=== PATIENT | female | born 1935 | race Caucasian/White ===

== ENCOUNTER → 2023-11-13 08:06 | Outpatient (REF) | payer MEDICARE, OTHER, SELFPAY | LOC: RST 08:06 | PROVIDERS: ATTENDING PHYSICIAN Nurse Practitioner Adult Health | DX: R13.13 Dysphagia, pharyngeal phase (principal) | CPT/HCPCS: 74230; 92611 ==

== ENCOUNTER → 2024-05-13 09:20 | Outpatient (REF) | payer MEDICARE, OTHER, SELFPAY | LOC: HWRCS 09:20 | PROVIDERS: ATTENDING PHYSICIAN Internal Medicine Cardiovascular Disease; FAMILY PHYSICIAN Internal Medicine | DX: Q21.0 Ventricular septal defect (principal); I35.1 Nonrheumatic aortic (valve) insufficiency | CPT/HCPCS: 93306 ==

== ENCOUNTER 2024-10-08 20:55 | Inpatient (IN) | payer MEDICARE, OTHER, SELFPAY ==
[2024-10-08 17:16] LABS: INR 1.19; Lactic Acid 1.7 mmol/L (0.7-2.0); PT 15.4 Sec (11.4-14.6)
[2024-10-08 17:34] LABS: % Basophils 0.4 % (0-2); % Eosinophils 0.1 % (0-6); % Immature Granulocytes 0.4 % (0-0.5); % Lymphocytes 2.6 % (20.5-51.1); % Monocytes 2.6 % (1.7-9.3); % Neutrophils 93.9 % (42.2-75.2); Absolute Basophils 0.1 10^3/uL (0-0.2); Absolute Immature Granulocytes 0.1 10^3/uL (0-0.05); Absolute Lymphocytes 0.4 10^3/uL (1.2-3.4); Absolute Monocytes 0.4 10^3/uL (0.1-0.6); Hematocrit 36.4 % (37.0-47.0); Hemoglobin 12.2 g/dL (12.0-16.0); Mean Corp Hgb Conc. 33.5 g/dL (33.0-37.0); Mean Corpuscular Hgb 30.7 pg (27.0-31.0); Mean Corpuscular Volume 91.7 fL (81.0-99.0); Mean Platelet Volume 9.2 fL (7.4-10.4); Nucleated Red Blood Cells % 0 %; Platelet Count 352 10^3/uL (130-400); Red Blood Cell Count 3.97 10^6/uL (4.20-5.40)
[2024-10-08 17:44] LABS: TSH Reflex To Free T4 1.97 uIU/ml (0.47-4.68)
[2024-10-08] MEDS: NSS 500 IV (17:58)
[2024-10-08 18:00] VITALS: BP 130/61
--- NOTE | 2024-10-08 18:22 | ED.GENMED ---
History of Present Illness
<Polly Peña PA-C - Last Filed: 10/08/24 22:22>
General
Chief Complaint: Pneumonia Symptoms
Source: patient and family (Daughters at bedside)
Exam Limitations: none
Time Seen by Provider: 10/08/24 17:42
Nursing documentation reviewed up to this point in time: agreed with
History of Present Illness
History of Present Illness:
Patient is an 88-year-old female with history of bronchiectasis, dysphagia presenting to the emergency department with shortness of breath and low pulse ox. Patient states she was seen by her ENT at [facility] on Friday where she received a few Botox
injections. They stated that she may have difficulty swallowing over the following few days. Patient states that beginning on Friday she has noticed worsening shortness of breath, low appetite, significant fatigue, and cough.
Patient denies any chest pain. No known fever. No hemoptysis.
Patient was found to be 84% on room air. Her family states that she has not been eating/drinking much over the past week. They are concerned that she may have aspirated.
Past History
<Polly Peña PA-C - Last Filed: 10/08/24 22:22>
Past History
ED Past Medical History: None
ED Past Surgical History: None
Social History
Tobacco: Non-smoker
Alcohol: None
Drug: None
Review of Systems
<Polly Peña PA-C - Last Filed: 10/08/24 22:22>
Review of Systems
Allergies reviewed?: Yes
All Other Systems: ROS reviewed and negative except as documented in HPI and ROS
Phy Exam
<Polly Peña PA-C - Last Filed: 10/08/24 22:22>
Physical Exam
Physical Exam:
Vitals: Hypoxic, tachypneic. Afebrile
General: Patient is frail.
Skin: Warm and dry, no rashes or lesions
Head: Normocephalic, atraumatic
Eyes: Sclera nonicteric. EOMs intact. No nystagmus.
Throat: Protecting airway
Neck: Normal ROM, no cervical spine tenderness, no meningismus. Trachea midline
Cardiac: Tachycardic, normal rhythm, no murmurs.
Pulm: Hypoxic, 84% on room air. Tachypneic. Bilateral rales. No wheeze
Abdomen: Abdomen soft and nontender.
Extremities: No evidence of cyanosis or edema. Palpable DP pulse bilateral
Neuro: AAOx3. Grossly intact.
Psychiatric: Normal affect.
Course
<Polly Peña PA-C - Last Filed: 10/08/24 22:22>
Orders/Labs/Results
Orders:
Orders
10/08/24 Breakfast
NPO
Allow oral meds: Yes
Allow clear liquids: Sips of Clears
10/08/24 16:37
Electrocardiogram (*1) Urgent
Reason for Study: Other
Other Reason for Exam: Possible Sepsis
EKG- Treatment ONCE
IV Insert/Care/Rem.- Treatment PRN
CR Chest - 2 Views Urgent
Comment:
Reason For Exam: suspected infection
10/08/24 16:49
Complete Blood Count/With Diff Urgent
Comprehensive Metabolic Panel Urgent
Lactic Acid Q4H
Comment: ON ICE, CANCEL 2ND ORDER IF FIRST LACTIC ACID LEVEL <2
Prothrombin Time Urgent
TSH Reflex To Free T4 Urgent
Blood Culture Q20M
NEIL Source: Blood/Venous
Specimen Description:
Comment: Urgent from separate sites. If patient screens positive for possible sepsis
10/08/24 17:53
0.9% Sodium Chloride 500 ml [Nss] 500 ml IV BOLUS
10/08/24 18:05
Blood Culture Q20M
NEIL Source: Blood/Venous
Specimen Description:
Comment: Urgent from separate sites. If patient screens positive for possible sepsis
Influenza A+B Rapid Molecular Urgent
NEIL Source: Nasal Swab
Specimen Description:
10/08/24 18:06
COVID-19 Antigen Urgent
Source: Nasal Swab
10/08/24 19:42
Piperacillin/Tazo 3.375 Gram [Zosyn] 3.375 gram in 50 ml IV NOW
10/08/24 19:46
Vancomycin 1 Gram/200 ml [Vancocin] 1 gram in 200 ml IV NOW
10/08/24 20:44
Admit/Transfer Patient As Directed
Co-Sign Provider:
Level of Care: Inpatient admission
Assign to:: IMU- Intermediate Care
Physician / Group: Robbin
Diagnosis: Acute Hypoxemic Resp Failure, Aspiration
Reason for Hospitalization: Acute Hypoxemic Resp Failure, Aspiration
Expected length of stay greater than two midnights?: Yes
ELOS- Estimated Length of Stay in days: 3
I certify the patient meets the requirements for IP care: Yes
PRN Pain Medication Management As Directed
May give lesser potent ordered pain med per pt: Yes
preference::
Protocol:: Medication orders for pain may be administered in a
manner that supports deferring to patient preference
when the pt is:
- Requesting an ordered lesser potent pain medication.
Least to most potent pain medications are defined
as: acetaminophen < NSAID < tramadol < opioids
(morphine, oxycodone, hydromorphone).
- Requesting a lesser dose of the same medication IF
ORDERED.
- Requesting a less intrusive route of administration
if both routes are prescribed by the provider (PO <
IV).
10/08/24 20:45
Code Status As Directed
Resuscitation Status: Do not resuscitate
Reached after discussion with pt or family/Healthcare POA: Yes
10/08/24 20:46
DNR Bracelet Application ONCE
10/08/24 22:02
Acetaminophen [Tylenol] 650 mg PO Q4HPRN PRN
Albuterol Nebs [Ventolin Nebules] 2.5 mg INH R Q4HPRN PRN
10/08/24 22:02
CLAUDIA Prep Routine
NEIL Source: Oropharyngeal
Specimen Description:
Activity As Directed
Activity Level: Ambulate
With Assistance
I/O [Intake/ Output] As Directed
Frequency: Per unit guidelines
Pneumatic Compression Sleeves As Directed
Type: Knee high
Precautions As Directed
Type of Precautions: Aspiration
Vital Signs As Directed
Frequency: Per unit guidelines
Weight As Directed
Frequency: Daily
Chest PT [Rx Chest Pt] [RESP] Routine
Special Instructions: BID
Incentive Spirometry [Rx Incentive Spirometry] [RESP] Routine
Frequency: q1h while awake
Oxygen Therapy [O2 Therapy] [RESP] Routine
Titrate/Wean O2 to maintain O2 sat greater than (%): 94
Speech Therapy Eval & Treat Routine
DX Deep Vein Thrombosis Video Routine
10/09/24 02:00
Ampicillin/Sulbactam 3 G [Unasyn] 3 gm 0.9% Sodium Chloride 100 ml [Nss] 100 ml IV Q6H
10/09/24 06:00
Basic Metabolic Panel IN AM
Complete Blood Count/No Diff IN AM
10/09/24 08:00
Albuterol Nebs [Ventolin Nebules] 2.5 mg INH R QID
Hydroxychloroquine [Plaquenil] 400 mg PO DAILY
Pantoprazole [Protonix IV] 40 mg IV DAILY
Sertraline HCl [Zoloft] 75 mg PO DAILY
Abnormal Lab Results
10/08/24
16:49
WBC 16.0 H 10^3/uL
(4.8-10.8)
RBC 3.97 L 10^6/uL
(4.20-5.40)
Hct 36.4 L %
(37.0-47.0)
Abs Immat Gran (auto) 0.1 H 10^3/uL
(0-0.05)
Absolute Neuts (auto) 15.0 H 10^3/uL
(1.4-6.5)
Absolute Lymphs (auto) 0.4 L 10^3/uL
(1.2-3.4)
Neutrophils % 93.9 H %
(42.2-75.2)
Lymphocytes % 2.6 L %
(20.5-51.1)
PT 15.4 H Sec
(11.4-14.6)
BUN 28 H mg/dl
(7-17)
Glucose 179 H mg/dl
(70-99)
Calcium 10.8 H mg/dl
(8.4-10.2)
AST 133 H U/L
(14-36)
ALT 46 H U/L
(0-35)
10/08/24 16:49
10/08/24 16:49
Vital Signs
Initial and Last Documented VS:
Initial Vital Signs
Pulse Ox
87
10/08/24 16:26
Last Documented Vital Signs
Temp Pulse Resp BP Pulse Ox
98.5 F 85 33 100/58 94
10/08/24 21:17 10/08/24 22:00 10/08/24 22:00 10/08/24 22:00 10/08/24 21:45
<Lalo Hall MD - Last Filed: 10/08/24 20:42>
Orders/Labs/Results
Orders:
Orders
10/08/24 Breakfast
NPO
Allow oral meds: Yes
Allow clear liquids: Sips of Clears
10/08/24 16:37
Electrocardiogram (*1) Urgent
Reason for Study: Other
Other Reason for Exam: Possible Sepsis
EKG- Treatment ONCE
IV Insert/Care/Rem.- Treatment PRN
CR Chest - 2 Views Urgent
Comment:
Reason For Exam: suspected infection
10/08/24 16:49
Complete Blood Count/With Diff Urgent
Comprehensive Metabolic Panel Urgent
Lactic Acid Q4H
Comment: ON ICE, CANCEL 2ND ORDER IF FIRST LACTIC ACID LEVEL <2
Prothrombin Time Urgent
TSH Reflex To Free T4 Urgent
Blood Culture Q20M
NEIL Source: Blood/Venous
Specimen Description:
Comment: Urgent from separate sites. If patient screens positive for possible sepsis
10/08/24 17:53
0.9% Sodium Chloride 500 ml [Nss] 500 ml IV BOLUS
10/08/24 18:05
Blood Culture Q20M
NEIL Source: Blood/Venous
Specimen Description:
Comment: Urgent from separate sites. If patient screens positive for possible sepsis
Influenza A+B Rapid Molecular Urgent
NEIL Source: Nasal Swab
Specimen Description:
10/08/24 18:06
COVID-19 Antigen Urgent
Source: Nasal Swab
10/08/24 19:42
Piperacillin/Tazo 3.375 Gram [Zosyn] 3.375 gram in 50 ml IV NOW
10/08/24 19:46
Vancomycin 1 Gram/200 ml [Vancocin] 1 gram in 200 ml IV NOW
10/08/24 20:44
Admit/Transfer Patient As Directed
Co-Sign Provider:
Level of Care: Inpatient admission
Assign to:: IMU- Intermediate Care
Physician / Group: Robbin
Diagnosis: Acute Hypoxemic Resp Failure, Aspiration
Reason for Hospitalization: Acute Hypoxemic Resp Failure, Aspiration
Expected length of stay greater than two midnights?: Yes
ELOS- Estimated Length of Stay in days: 3
I certify the patient meets the requirements for IP care: Yes
PRN Pain Medication Management As Directed
May give lesser potent ordered pain med per pt: Yes
preference::
Protocol:: Medication orders for pain may be administered in a
manner that supports deferring to patient preference
when the pt is:
- Requesting an ordered lesser potent pain medication.
Least to most potent pain medications are defined
as: acetaminophen < NSAID < tramadol < opioids
(morphine, oxycodone, hydromorphone).
- Requesting a lesser dose of the same medication IF
ORDERED.
- Requesting a less intrusive route of administration
if both routes are prescribed by the provider (PO <
IV).
10/08/24 20:45
Code Status As Directed
Resuscitation Status: Do not resuscitate
Reached after discussion with pt or family/Healthcare POA: Yes
10/08/24 20:46
DNR Bracelet Application ONCE
10/08/24 22:02
Acetaminophen [Tylenol] 650 mg PO Q4HPRN PRN
Albuterol Nebs [Ventolin Nebules] 2.5 mg INH R Q4HPRN PRN
10/08/24 22:02
CLAUDIA Prep Routine
NEIL Source: Oropharyngeal
Specimen Description:
Activity As Directed
Activity Level: Ambulate
With Assistance
I/O [Intake/ Output] As Directed
Frequency: Per unit guidelines
Pneumatic Compression Sleeves As Directed
Type: Knee high
Precautions As Directed
Type of Precautions: Aspiration
Vital Signs As Directed
Frequency: Per unit guidelines
Weight As Directed
Frequency: Daily
Chest PT [Rx Chest Pt] [RESP] Routine
Special Instructions: BID
Incentive Spirometry [Rx Incentive Spirometry] [RESP] Routine
Frequency: q1h while awake
Oxygen Therapy [O2 Therapy] [RESP] Routine
Titrate/Wean O2 to maintain O2 sat greater than (%): 94
Speech Therapy Eval & Treat Routine
DX Deep Vein Thrombosis Video Routine
10/09/24 02:00
Ampicillin/Sulbactam 3 G [Unasyn] 3 gm 0.9% Sodium Chloride 100 ml [Nss] 100 ml IV Q6H
10/09/24 06:00
Basic Metabolic Panel IN AM
Complete Blood Count/No Diff IN AM
10/09/24 08:00
Albuterol Nebs [Ventolin Nebules] 2.5 mg INH R QID
Hydroxychloroquine [Plaquenil] 400 mg PO DAILY
Pantoprazole [Protonix IV] 40 mg IV DAILY
Sertraline HCl [Zoloft] 75 mg PO DAILY
Abnormal Lab Results
10/08/24
16:49
WBC 16.0 H 10^3/uL
(4.8-10.8)
RBC 3.97 L 10^6/uL
(4.20-5.40)
Hct 36.4 L %
(37.0-47.0)
Abs Immat Gran (auto) 0.1 H 10^3/uL
(0-0.05)
Absolute Neuts (auto) 15.0 H 10^3/uL
(1.4-6.5)
Absolute Lymphs (auto) 0.4 L 10^3/uL
(1.2-3.4)
Neutrophils % 93.9 H %
(42.2-75.2)
Lymphocytes % 2.6 L %
(20.5-51.1)
PT 15.4 H Sec
(11.4-14.6)
BUN 28 H mg/dl
(7-17)
Glucose 179 H mg/dl
(70-99)
Calcium 10.8 H mg/dl
(8.4-10.2)
AST 133 H U/L
(14-36)
ALT 46 H U/L
(0-35)
10/08/24 16:49
10/08/24 16:49
Vital Signs
Initial and Last Documented VS:
Initial Vital Signs
Pulse Ox
87
10/08/24 16:26
Last Documented Vital Signs
Temp Pulse Resp BP Pulse Ox
98.5 F 85 33 100/58 94
10/08/24 21:17 10/08/24 22:00 10/08/24 22:00 10/08/24 22:00 10/08/24 21:45
<Polly Peña PA-C - Last Filed: 10/08/24 22:22>
MDM/Problems Addressed
Differential Diagnosis Includes:
Not limited to: Viral illness, bronchitis, aspiration pneumonia, viral/bacterial pneumonia, pleural effusion, etc.
MDM/Problems Addressed:
88-year-old female with history as documented presenting with 3 days of progressively worsening shortness of breath associated with cough and fatigue. No known fever, no hemoptysis or exertional chest pain. Patient does have history of dysphagia
with recent Botox injections this past Friday. Family concern for possible aspiration event. Patient mildly tachycardic on arrival, and hypoxic to 84% on room air. She is afebrile. Physical exam as above. Patient appears in no distress, mildly
tachypneic with O2 sats 93 on 2 L. Rales bilaterally with normal heart sounds. No lower extremity edema. Labs were initiated in triage significant for leukocytosis of 16 with left shift. Chemistry is pending. Lactic acid normal. Given hypoxia
in setting of cough and leukocytosis�concern for infectious process such as pneumonia, specifically aspiration pneumonia with dysphagia issues. Chest x-ray reviewed by me which does show left lower lobe opacity with possible right perihilar opacity.
Will give 500 mL normal saline. Patient will require admission given hypoxia requiring supplemental O2 and concern for pneumonia on x-ray.
Ultimately�suspect acute hypoxic respiratory failure secondary to pneumonia. Viral swabs negative. Blood cultures sent. Chemistry without acute abnormalities. Given concern for possible aspiration event�will start IV vancomycin/Zosyn in ED.
Patient will be admitted to hospitalist for continued management. Accepted to hospitalist service in stable condition.
Chronic conditions affecting care:
Dysphagia
Acute Exacerbation and/or Progression of Chronic Illness:
N/A
<Polly Peña PA-C - Last Filed: 10/08/24 22:22>
*Radiology
Radiology exam reviewed: preliminary read by ED provider (Chest x-ray reviewed by il-left lower lobe pneumonia)
*Pulse Oximetry
Patient hypoxic: no
*EKG
Interpreted by ED Provider?: Yes
EKG Intrepretation Date: 10/08/24
Interpretation: abnormal
Comparison EKG: changes noted
Heart Rate: 102
Rate: tachycardiac
Rhythm: sinus
[place]: left axis deviation
Interval: normal QT interval
QRS Pattern: normal QRS
Ischemia: no ischemia
*Lotus Notes Administrator Interpretation
Rate: tachycardiac
Interpretation: abnormal
Heart Rate: 102
Rhythm: sinus
*Critical Care Note
Total Time (30-74mins, 75-104mins- exclusive of procedures): Not Applicable
<Polly Peña PA-C - Last Filed: 10/08/24 22:22>
Patient Management
Discussion with other providers: Hospitalist
Escalation/DeEscalation of care consider admission/obs:
Admit for IV antibiotics, supplemental O2
ED Attending Note
<Polly Peña PA-C - Last Filed: 10/08/24 22:22>
-
Portions of this chart may have been created with voice recognition software.� Occasional wrong word or��sound alike� substitutions may have occurred due to the inherent limitations of voice recognition software.
<Lalo Hall MD - Last Filed: 10/08/24 20:42>
ED Attending Note
Patient seen and examined by attending physician: Yes
ED Attending Note:
I have seen and evaluated the patient with a [id number] encounter. I have spoken to the advance practicer provider and involved in the medical history, the physical exam, medical decision making.
Evaluation and management service: agree unless noted differently below.
Results interpretation: agree unless noted differently below.
Focused HPI: 88-year-old female presents with cough and shortness of breath. Ongoing for the past 2 days; has had issues with aspiration had recent Botox injection to help with this and has had increased cough and shortness of breath since. No
fever. No chest pain. No swelling or pain in the legs.
Physical exam: Tachycardia, tachypnea, hypoxia requiring 2 L nasal cannula. Scattered crackles bilaterally. No edema in the legs.
Medical Decision Makin-year-old female presents with cough and shortness of breath in the setting of recent dysphagia/aspiration issues. She has a leukocytosis to 16; COVID and flu negative. Chest x-ray concerning for pneumonia. Cover with
antibiotics. Culture sent off. Admit.
Discharge Plan
Departure
Patient Disposition: Admit
Date of Disposition: 10/08/24
Time of Disposition: 20:09
Presentation/result/management discussed w/ accepting MD/DO: Hospitalist
Discharge Problem:
Left lower lobe pneumonia, Acute hypoxemic respiratory failure
Interventions
Interventions:
*Risk Screen - Suicide Last Done: 10/08/24 16:36
*General Assessment Last Done: 10/08/24 16:36
*Neglect/Abuse Screening Last Done: 10/08/24 16:36
*ED- Fall Risk Assessment Last Done: 10/08/24 22:13
*ED COVID-19 Vaccine History Last Done: 10/08/24 16:36
*Nursing Disposition Last Done: 10/08/24 22:13
ED- Cardiac Assessment Last Done: 10/08/24 18:15
ED- Pulmonary Assessment Last Done: 10/08/24 18:15
Discharge Date and Time
Discharge Date/Time: 10/08/24 22:14
[2024-10-08 18:29] LABS: COVID-19 Antigen Negative (Negative)
[2024-10-08 19:02] VITALS: BP 134/82
[2024-10-08 19:48] VITALS: BMI 20.2
[2024-10-08 19:57] LABS: ALT (SGPT) 46 U/L (0-35); AST (SGOT) 133 U/L (14-36); Albumin 4.4 g/dl (3.5-5.0); Alkaline Phosphatase 94 U/L (38-126); Blood Urea Nitrogen 28 mg/dl (7-17); Calcium 10.8 mg/dl (8.4-10.2); Carbon Dioxide 22 mmol/L (22-30); Chloride 101 mmol/L (98-107); Estimated Creatinine Clearance 34 ml/min; Glucose 179 mg/dl (70-99); Potassium 4.2 mmol/L (3.5-5.1); Sodium 137 mmol/L (135-145); Total Bilirubin 1.3 mg/dl (0.2-1.3); Total Protein 7.2 g/dl (6.3-8.2); eGFR > 60.00
[2024-10-08] MEDS: ZOSYN 50 IV (19:59)
[2024-10-08 20:00] VITALS: BP 116/46
--- NOTE | 2024-10-08 20:59 | HPS.HSE ---
Family Physician
-
Family Physician: hSon Phan
Chief Complaint
-
SOB
History of Present Illness
Patient is an 88y F with PMH significant for chronic dysphagia and bronchiectasis who presents to ED complaining of increased SOB. History obtained from patient and her family at he bedside. Patient has long history of established dysphagia.
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 She has been followed by ENT (Dr. Painter) and Pulmonary (Dr. Reeder). Patient was recently seen by ENT (Dr. Willow Sanchez) and underwent Botox injection on Friday of this week. Patient
states that she has had increased difficulty swallowing and increased SOB since that time. Patient reports intermittent chills but denies any measured fever.
She has poor appetite / poor oral intake but denies any N/V/D, etc.
Patient's daughter went to visit her today and noted that she appeared to be very SOB.
They were seen by the local physician and she was noted to be hypoxemic in the 80s on room air.
Patient presented to the ED for further evaluation.
Here in the ED, patient states that she feels somewhat improved after supplemental oxygen.
Patient had a very active day yesterday with no apparent issues - including dental visit with cavity filling / etc.
Medical History
Past Medical History
Past Medical History: Reports Other
Additional Past Medical History:
Chronic Dysphagia
Zencker's Diverticulum
Rheumatoid Arthritis
Bronchiectasis
Subarachnoid Cyst
Past Surgical History: Reports Other
Additional Past Surgical History:
Bilateral JENNA
Right Temporal Craniotomy
Zencker's Diverticulum Repair
Social History
Tobacco: Non-smoker
Alcohol: Occasional (Very rare.)
Family History
Family History: Not pertinent
Allergies / Home Medications
Allergies reflects when Allergies were last updated in [email or web address].
Home Medications with original date entered in [email or web address]
Allergy/Medication List:
Allergies
Allergy/AdvReac Type Severity Reaction Status Date / Time
No Known Allergies Allergy Verified 10/08/24 16:34
Home Medications
cholecalciferol (vitamin D3) 25 mcg (1,000 unit) capsule 1,000 unit PO DAILY 01/05/14
ascorbic acid (vitamin C) 500 mg tablet (Vitamin C) 500 mg PO DAILY 10/08/24
budesonide 0.5 mg/2 mL suspension for nebulization 0.5 mg inhalation R BID 10/08/24
calcium carbonate 500 mg PO DAILY 10/08/24
denosumab 60 mg/mL subcutaneous syringe (Prolia) 60 mg SC [id number] 10/08/24
hydroxychloroquine 200 mg tablet 400 mg PO DAILY 10/08/24
ipratropium bromide 0.02 % solution for inhalation 2.5 ml inhalation R BID 10/08/24
naproxen sodium 220 mg tablet (Aleve) 220 mg PO BIDPRN PRN mild pain 10/08/24
pantoprazole 40 mg tablet,delayed release 40 mg PO DAILY 10/08/24
sertraline 50 mg tablet 75 mg PO DAILY 10/08/24
therapeutic multivitamin 1 tab PO DAILY 10/08/24
Review of Systems
-
History Source: Patient and Family
A 12 point ROS was completed and negative except as noted: Yes
Constitutional: Reports Fatigue and Chills; Denies Fever
EENT: Reports Other (Dry mouth); Denies Sore Throat or Mouth Pain
Respiratory: Reports Cough and Trouble Breathing; Denies Hemoptysis
Cardiac: Denies Chest Pain or Palpitations
Abdomen/GI: Reports Anorexia; Denies Abdominal Pain, Nausea, Vomiting or Diarrhea
: Denies Dysuria, Frequency or Flank Pain
Musculoskeletal: Denies Joint Pain or Edema
Neurological: Denies Dizzy or Headache
Physical Exam
Vital Signs
Vital Signs
Temp Pulse Resp BP Pulse Ox
98.3 F 94 24 116/46 93
10/08/24 16:32 10/08/24 20:30 10/08/24 20:30 10/08/24 20:00 10/08/24 20:30
Physical Exam
General: Other (88y F in no acute distress.)
HEENT: Other (Very dry MM. Whitish coat on tongue and few spots on posterior oropharynx.)
Respiratory: Other (Scattered coarse breath sounds. No wheezing.)
Cardiac: S1/S2 and Regular Rhythm; No Murmur
GI: Soft, Non Tender, Non Distended and Normal Bowel Sounds
Musculoskeletal: No Clubbing, No Cyanosis and No Edema
Neuro: AO x 3
Laboratory Results
-
10/08/24 16:49
10/08/24 16:49
Laboratory Results
PT 15.4 Sec (11.4-14.6) H 10/08/24 16:49
INR 1.19 10/08/24 16:49
Lactic Acid Cancelled 10/08/24 20:45
Total Bilirubin 1.3 mg/dl (0.2-1.3) 10/08/24 16:49
AST 133 U/L (14-36) H 10/08/24 16:49
ALT 46 U/L (0-35) H 10/08/24 16:49
Alkaline Phosphatase 94 U/L (38-126) 10/08/24 16:49
Impression/Plan
-
A/P: Patient is an 88y F with PMH significant for chronic dysphagia / aspiration who presents to ED complaining of increased SOB.
Acute Hypoxemic Respiratory Failure
Chronic Dysphagia with Acute / Chronic Aspiration Pneumonitis
Chronic Bronchiectasis
- Admit for further evaluation and treatment.
- Continue supplemental O2, nebs, supportive care.
- Aspiration precautions, Speech eval.
- Pulmonary evaluation for additional recommendations.
- IV Unasyn for now given risk for aspiration pneumonia.
- Follow temperature curve. Follow for any new / worsening symptoms.
Suspected Oral Thrush
- Nystatin for now.
- Hold on steroid nebs for now.
- Follow for improvement in exam / swallowing / etc.
Rheumatoid Arthritis
- Stable. Continue Plaquenil.
DVT Prophylaxis: SCDs
Code Status: DNR
[2024-10-08 21:00] VITALS: BP 101/61
[2024-10-08] MEDS: VANCOCIN 200 IV (21:07)
[2024-10-08 22:00] VITALS: BP 100/58
[2024-10-08 22:13] VITALS: BMI 19.9
[2024-10-08] MEDS: MYCOSTATIN ORAL SUSPENSION 5 ML PO (22:40)
[2024-10-08 22:44] VITALS: BP 118/62
--- NOTE | 2024-10-08 23:09 | PTCARENOTE ---
pt admitted from ED, pt is AAOx3, [employer] [place], able to make needs known. VSS. pt on 2L 95%, tachypneic, and SOB on exertion. lungs course throughout. pt is NPO at this time, pt aware and verbalized understanding. able to use BSC x1 assist without issues.
urine khari. thrush noted on tongue, nystatin swabbed onto tongue since pt NPO. pt oriented to new room, call diaz within reach, care ongoing.
[2024-10-09] VITALS (10 sets, daily range): BP systolic 92–124; BP diastolic 53–70; BMI 19.9
--- NOTE | 2024-10-09 00:29 | PTCARENOTE ---
family had asked this RN about IV fluids being ordered. notified [employer]KER- no new orders at this time.
[2024-10-09] MEDS: UNASYN IV ×4 (01:34→20:10)
[2024-10-09 05:21] LABS: Hematocrit 29.8 % (37.0-47.0); Hemoglobin 10.2 g/dL (12.0-16.0); Mean Corp Hgb Conc. 34.2 g/dL (33.0-37.0); Mean Corpuscular Hgb 31.2 pg (27.0-31.0); Mean Corpuscular Volume 91.1 fL (81.0-99.0); Mean Platelet Volume 9.5 fL (7.4-10.4); Platelet Count 278 10^3/uL (130-400); Red Blood Cell Count 3.27 10^6/uL (4.20-5.40); Red Cell Dist. Width 13.2 % (11.5-14.5); White Blood Cell Count 10.2 10^3/uL (4.8-10.8)
[2024-10-09 05:39] LABS: Blood Urea Nitrogen 24 mg/dl (7-17); Calcium 9.7 mg/dl (8.4-10.2); Carbon Dioxide 26 mmol/L (22-30); Chloride 106 mmol/L (98-107); Estimated Creatinine Clearance 38 ml/min; Glucose 91 mg/dl (70-99); Potassium 3.5 mmol/L (3.5-5.1); Sodium 139 mmol/L (135-145); eGFR > 60.00
[2024-10-09] MEDS: VENTOLIN NEBULES 2.5 MG INH ×4 (07:18→18:28)
[2024-10-09] MEDS: NSS (PRESERVATIVE FREE) 10 ML IV (08:37)
[2024-10-09] MEDS: PROTONIX IV 40 MG IV (08:37)
[2024-10-09] MEDS: MYCOSTATIN ORAL SUSPENSION 5 ML PO ×4 (08:39→21:50)
[2024-10-09] MEDS: PLAQUENIL PO ×2 (08:39→08:59)
--- NOTE | 2024-10-09 09:19 | W.PN.HOSP.TC ---
Today's Communication/Plan
-
await speech
cont unasyn
cont nystatin
Assessment / Plan
Assessment / Plan
pt is an 88 year old female
Acute Hypoxemic Respiratory Failure likely due to Chronic Dysphagia with Acute on Chronic Aspiration Pneumonitis exacerbated by Botox injection 4 days ago with Chronic Bronchiectasis--Continue supplemental O2, nebs, supportive care--await speech
eval--may need VSE- Pulmonary evaluation for additional recommendations- IV Unasyn given risk for aspiration pneumonia--CXR with subtle bibasilar PNA
- Follow temperature curve. Follow for any new / worsening symptoms.
Suspected Oral Thrush - Nystatin for now-- Hold on steroid nebs for now.
Rheumatoid Arthritis- Stable. Continue Plaquenil.
DVT Proph-- SCDs
Code Status: DNR
Anticipated Discharge: > 48 hours
Subjective/Interval History
-
Date of Service: October 09, 2024
pt without c/o
having trouble swallowing
Objective Data
-
Labs:
Laboratory Results
10/09/24
04:23
WBC 10.2
Hgb 10.2 L
Hct 29.8 L
Plt Count 278 D
Sodium 139
Potassium 3.5
Chloride 106
Carbon Dioxide 26
BUN 24 H
Creatinine 0.8
Glucose 91
Calcium 9.7
Vital Signs:
max temp for 24 hours
10/08/24
23:00
Temp 98.5 F
Vital Signs
Temp Pulse Resp BP Pulse Ox
98.0 F 94 17 105/53 95
10/09/24 02:33 10/09/24 08:00 10/09/24 08:00 10/09/24 06:00 10/09/24 08:00
I&O
10/08/24 10/09/24 10/10/24
06:59 06:59 06:59
Intake Total 120 / 120
Balance 120 / 120
Review of Systems
-
All other systems: Reviewed and negative
EENT: Reports Other (swallowing issues)
Physical Exam
-
General: Other (underweight)
HEENT: Normocephalic, Atraumatic, Thrush and Oxygen
Respiratory: Clear to Auscultation; Negative Wheezes or Rhonchi
Cardiac: Regular Rhythm and S1/S2; Negative Murmur
GI: Soft, Nontender, Nondistended and Normal Bowel Sounds
Musculoskeletal: No Clubbing, No Cyanosis and No Edema
Neuro: Awake and Alert
Psych: Calm
--- NOTE | 2024-10-09 09:24 | CM ---
Initial assessment completed at beside with patient and son, Luis Daniel
Pharmacy verified: [facility] [address] [place] [address]
Patient resides in a one floor apartment @ [facility]
PLOF: reports she is independent with personal care, drives; uses a cane when she ambulates outside the building; receiving Speech Therapy @ facility
DME: [employer]
Member of family will transport home
Plan: discharge to home when medically stable; CM will monitor for needs
[2024-10-09] MEDS: D5/0.9% SODIUM CHLORIDE 1000 IV (10:22)
--- NOTE | 2024-10-09 10:48 | PTOTSP ---
Addendum entered and electronically signed by ST Yaw 10/09/24 10:53:
* s/p VSE in October of 2023
Original Note:
Speech Therapy Evaluation:
Swallow Hx:
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 See VSE results copied below. Pt's son present at bedside and reported pt currently being
seen by home care PHYSICAL BIOCHEMIST 2-3x/week for dysphagia. Pt's son reported a '3 pronged attack' with previous medical team to improve swallowing including 1) Speech Therapy 2) 'slippery diet' 3) Botox injections to 'loosen throat' (likely related to
pronounced CP bar), which was recommended 3 weeks ago.
VSE 11/13/2023:
- Moderate to severe pharyngeal/esophageal dysphagia
- Severe pharyngeal stasis and instances of trace laryngeal penetration arising from said retention.
- Pharyngeal retention was due to a markedly pronounced cricopharyngeal bar and minimal distension of PES causing marked obstruction with flow.
- No aspiration
- Solids were not assessed due to elevated choking/obstruction risk given degree of pharyngeal retention
- Recommended Diet Level: thin liquids and ground, moist solids
- Compensations and Strategies: Use multiple dry swallows after each regular swallow, Use 'hard effortful' swallows, Small single sips of liquid/avoid continuous swallows, Small bites of food, Eat slowly and chew food thoroughly, Take sip of liquid
to assist with pharyngeal clearance
- Recommended Referrals: Consider consult to GI or ENT to address cricopharyngeal prominence/narrow PES.'
Current Swallow Function:
Pt with copious, thick, and morales/yellow secretions. She required frequent oral suctioning throughout assessment. Assessed tolerance of ice chips x2 in hopes to decrease swallow muscle atrophy and assist in secretion management. Pt tolerated first ice
chip without difficulty. On second ice chip, pt began coughing while masticating (suspect related to cough outside of PO intake instead of reduced oral control). During coughing spell, pt expectorated pieces of ice chip, demonstrated wet vocal
quality (? from ice chip versus abundant secretions), and required extensive oral suctioning.
Impression:
Given copious secretions with frequent suctioning requirement, CXR with subtle PNA, shortness of breath, and bedside performance with and without PO, pt not appropriate for oral diet at this time.
Recommend:
1. Strict NPO
2. Medications non-oral
3. Oral care 3x daily
4. HOB elevated
5. ARHP not appropriate
6. PHYSICAL BIOCHEMIST to follow to assess candidacy for diet initiation versus need for repeat VSE pending improvement of secretions
--- NOTE | 2024-10-09 15:20 | CON.PUL ---
Consultation
Consultation Request
Date/Time Consultation Requested: 10/08/2024 - 2225
Date/Time Consultation Performed: 10/09/2024 - 1229
Requesting Provider: Dr. Siegel
Performing Provider: Dr. Vargas
Reason for Consultation: SOB/Hypoxia
Medical History
-
Chief Complaint: SOB
History of Present Illness:
88-year-old female with a past medical history of bronchiectasis, chronic dysphagia, history of Zenker's diverticulum s/p repair, history of RA and osteoporosis who presents with chills and shortness of breath. She follows with ENT, Dr. Painter, and
was referred for Botox injection which she had this past Friday at a doctor at [facility] (Dr. Sanchez). The patient had a tight muscle in her esophagus and the Botox was given to help with this. She was told after getting the Botox injection that some
patients worsen after about 4-5 days, and that seems to be exactly what happened. The patient also had COVID this past fall and seems to have developed a cough since that time. In the ER here, she was initially afebrile to 98.3 �F, pulse rate 103,
respiratory rate 19, BP 130/61 and saturating 87% on room air. Saturations improved to 93% on 2 L/min nasal cannula. Labs showed leukocytosis to 16, Hb 12.2, glucose 179, TSH 1.97, and COVID-19 antigen negative. Blood cultures were collected, and
flu swab was negative. CXR obtained showing subtle patchy interstitial and alveolar opacities in the bases suspicious for a mild bibasilar pneumonia. She was given 500 cc bolus of NS 0.9%, Zosyn and admitted to the IMU for further management.
Pulmonary service consulted for additional recommendations.
When I saw the patient, she was resting in bed in no acute distress, currently on 1 L/min, saturating 95% with heart rate 100 and BP 103/61. Her daughter, who is an ICU nurse here at at night, was also at bedside and all questions were answered.
The patient is feeling much better overall. Of note, the patient had seen us in the office on 09/09/[address] Reeder. At that time she was endorsing a worsening productive cough, worse with eating, and worse at night. She was started on a
short prednisone taper starting at 10 mg, also budesonide twice daily + ipratropium twice daily. The patient does not know if the inhalers helped her feel better but she was told that she has thrush in her mouth by the ER physician here on
admission. She does feel that the budesonide helped her cough overall however. She currently denies chest pain, AGUILAR, nausea, fevers or chills. She says she does have a cough mainly when she eats and some phlegm production during the day.
Chronically though she has no fevers or chest pain.
PMHx: Bronchiectasis, chronic dysphagia, history of Zenker's diverticulum s/p repair, history of RA, subarachnoid cyst, osteoporosis
PSHx: Bilateral JENNA, right temporal craniotomy, Zenker's diverticulum repair
Past Medical History
Past Medical History: Other (Above as per HPI)
Past Surgical History: Other (Above as per HPI)
Social History
Tobacco: Non-smoker
Alcohol: Occasional (Rarely)
Drug: None
Family History
Family History: Reviewed & Not Pertinent
Allergies / Home Medications
Allergies
Allergy/AdvReac Type Severity Reaction Status Date / Time
No Known Allergies Allergy Verified 10/08/24 16:34
Home Medications
�Medication �Instructions �Recorded �Confirmed �Last Taken �Type
cholecalciferol (vitamin D3) 25 1,000 unit PO DAILY 01/05/14 10/08/24 10/07/24 History
mcg (1,000 unit) capsule
ascorbic acid (vitamin C) 500 mg 500 mg PO DAILY 10/08/24 10/08/24 10/07/24 History
tablet (Vitamin C)
budesonide 0.5 mg/2 mL suspension 0.5 mg inhalation R BID 10/08/24 10/08/24 10/07/24 History
for nebulization
calcium carbonate 500 mg PO DAILY 10/08/24 10/08/24 10/07/24 History
denosumab 60 mg/mL subcutaneous 60 mg SC [id number] 10/08/24 10/08/24 08/10/24 History
syringe (Prolia)
hydroxychloroquine 200 mg tablet 400 mg PO DAILY 10/08/24 10/08/24 10/07/24 History
ipratropium bromide 0.02 % 2.5 ml inhalation R BID 10/08/24 10/08/24 10/07/24 History
solution for inhalation
naproxen sodium 220 mg tablet 220 mg PO BIDPRN PRN mild pain 10/08/24 10/08/24 Unknown History
(Aleve)
pantoprazole 40 mg tablet,delayed 40 mg PO DAILY 10/08/24 10/08/24 10/07/24 History
release
sertraline 50 mg tablet 75 mg PO DAILY 10/08/24 10/08/24 10/07/24 History
therapeutic multivitamin 1 tab PO DAILY 10/08/24 10/08/24 10/07/24 History
Review of Systems
-
History Source: Patient
All other systems: Negative unless noted
Vitals / Labs / Diagnostic Testing
Vital Signs
Temp Pulse Resp BP Pulse Ox
98.0 F 94 17 105/53 95
10/09/24 02:33 10/09/24 08:00 10/09/24 08:00 10/09/24 06:00 10/09/24 08:00
Lab Data
10/09/24 04:23
10/09/24 04:23
Laboratory Results
10/08/24
16:49
PT 15.4 H
INR 1.19
Microbiology
10/08/24 18:05 Nasal Swab Influenza Types A & B (KATRINA) - Final
Negative for Influenza A & B, NAAT
Negative results must be combined with clinical observations
and patient history.
Nucleic Acid Amplification test (NAAT)performed on the
[employer] platform.
Diagnostic Testing:
Physical Exam
-
HEENT: Normocephalic and Anicteric
Cardiovascular: S1/S2 and Peripheral Edema (negative)
Respiratory: Wheeze (negative), Rales (Bilaterally), Rhonchi (negative) and Non-Labored Respirations
GI: Soft, Non Distended, Non Tender and Normal Bowel Sounds
Neurology: AO x 3 and Tremors (negative)
Skin: Warm and Dry
General: Respiratory Distress (negative), Comfortable, Fever (negative) and Chills (negative)
Assessment
-
Assessment: 88-year-old female with a past medical history of bronchiectasis, chronic dysphagia, history of Zenker's diverticulum s/p repair, history of RA and osteoporosis who presents with chills and shortness of breath. She follows with ENT,
Dr. Painter, and was referred for Botox injection which she had this past Friday at a doctor at [facility] (Dr. Sanchez). The patient had a tight muscle in her esophagus and the Botox was given to help with this. She was told after getting the Botox
injection that some patients worsen after about 4-5 days, and that seems to be exactly what happened. The patient also had COVID this past fall and seems to have developed a cough since that time. In the ER here, she was initially afebrile to 98.3
�F, pulse rate 103, respiratory rate 19, BP 130/61 and saturating 87% on room air. Saturations improved to 93% on 2 L/min nasal cannula. Labs showed leukocytosis to 16, Hb 12.2, glucose 179, TSH 1.97, and COVID-19 antigen negative. Blood cultures
were collected, and flu swab was negative. CXR obtained showing subtle patchy interstitial and alveolar opacities in the bases suspicious for a mild bibasilar pneumonia. She was given 500 cc bolus of NS 0.9%, Zosyn and admitted to the IMU for
further management. Pulmonary service consulted for additional recommendations.
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
Impression:
#Aspiration pneumonia likely due to to aspiration of secretions after her recent Botox injection to her esophagus 'wore off'
#Acute respiratory failure with hypoxia
#Acute anemia
#Transaminitis
#Chronic dysphagia with a history of Zenker's diverticulum s/p repair and recent Botox injection to the esophagus due to a 'tight muscle' (?UES)
#Bronchiectasis in the lower lobes + RML/lingula with areas of known mucous plugging + opacification in the RML/lingula seen on recent CT chest on 07/28/2024
Plan:
- Patient does have a history of mucous plugging with opacification and bronchiectasis in the RML + lingula, and lower lobe bronchiectasis
- She also was referred for Botox of her esophagus, due to a suspected upper esophageal sphincter that was tight. This was injected by Dr. Willow Sanchez at [facility]. According to the patient and her daughter, this Botox injection greatly helped but
she was told that some patients get worse after 4-5 days and that is exactly what happened
- Perhaps the Botox effect wore off and then her area esophagus tightened up causing diversion of secretions to be aspirated
- Her current CXR shows bibasilar opacification with high suspicion for aspiration
- Continued antibiotics � currently on Unasyn
- Recommend LIGHTER evaluation � patient deemed high aspiration risk and patient may need repeat video swallow eval depending on improvement on her secretions
- Continue aspiration precautions
- Maintain SpO2 >90-94% with supplemental O2 and wean down as tolerated
- Aspiration precautions; keep HOB >30-45�
- Continue with nebulized albuterol QID
- prn nebulized bronchodilators - not currently bronchospastic
- Patient currently on nystatin 5 mL PO QID for suspected thrush - would complete 14 day course of this
- Incentive spirometer encouraged q1hr while awake
- Replete electrolytes with K>4, Mg>2
- Trend H/H and transfuse if needed to keep Hb>7g/dL; keep plt>20k, unless there is concern for bleeding then keep plt>50k
- Maintain euglycemia with goal BG >100 and <180
- DVT ppx: recommend to start LMWH
Code status: DNR/DNI
Pulmonary service will continue to follow along. Outpatient follow-up appointment has already been scheduled with Dr. Reeder for 11/11/2024 at 9:30 AM. May need to move this appointment up depending how her hospital course ensues.
Data:
CXR 10/08/2024: Findings suspicious for subtle bibasilar pneumonia.
Total time spent today was 58 minutes for this encounter. Time includes reviewing laboratory test/imaging results, reviewing pertinent medical records, obtaining and reviewing medical history, performing an appropriate exam, ordering medications,
tests and procedures. Time also includes documentation of this encounter, coordinating patient care and communicating with other healthcare professionals. Total time does not include separately billed tests performed on this date of service.
--- NOTE | 2024-10-09 19:19 | PTCARENOTE ---
OOB all day, ambulated this pm with daughter on o2. Failed O2 wean Rair 88%- 94% ON 1l nc. Lungs diminished throughout. Unable to manage secretions this am- constant spitting into tissues- abramkemuriel provided and demonstrating good use. Thin clear
secretions. Oral care provided. Strict NPO status maintained. PO meds held this am- Dr. Kumar aware.
--- NOTE | 2024-10-09 22:26 | PTCARENOTE ---
Care assumed of Pt from alessandra RN. Pt is aaox3. resting in chair and visiting with daughter at bedside. pt on 2L 02, satting 98%. Pt with productive moist cough, suction at bedside for pt use of clearing secretions. npo maintained. assessment as
documented. safe environment maintained. call light in reach.
[2024-10-10] VITALS (12 sets, daily range): BP systolic 98–145; BP diastolic 54–104; BMI 19.9
[2024-10-10] MEDS: D5/0.9% SODIUM CHLORIDE 1000 IV ×2 (02:18→20:42)
[2024-10-10] MEDS: UNASYN IV ×4 (02:18→20:42)
[2024-10-10 05:13] LABS: Hematocrit 27.9 % (37.0-47.0); Hemoglobin 9.3 g/dL (12.0-16.0); Mean Corp Hgb Conc. 33.3 g/dL (33.0-37.0); Mean Corpuscular Hgb 30.8 pg (27.0-31.0); Mean Corpuscular Volume 92.4 fL (81.0-99.0); Mean Platelet Volume 9.7 fL (7.4-10.4); Platelet Count 269 10^3/uL (130-400); Red Blood Cell Count 3.02 10^6/uL (4.20-5.40); Red Cell Dist. Width 13.2 % (11.5-14.5); White Blood Cell Count 9.4 10^3/uL (4.8-10.8)
[2024-10-10 05:44] LABS: ALT (SGPT) 34 U/L (0-35); AST (SGOT) 88 U/L (14-36); Albumin 2.9 g/dl (3.5-5.0); Alkaline Phosphatase 75 U/L (38-126); Blood Urea Nitrogen 19 mg/dl (7-17); Calcium 8.8 mg/dl (8.4-10.2); Carbon Dioxide 24 mmol/L (22-30); Chloride 110 mmol/L (98-107); Estimated Creatinine Clearance 44 ml/min; Glucose 123 mg/dl (70-99); Magnesium 2.2 mg/dl (1.6-2.3); Potassium 3.3 mmol/L (3.5-5.1); Sodium 141 mmol/L (135-145); Total Bilirubin 0.6 mg/dl (0.2-1.3); Total Protein 5.4 g/dl (6.3-8.2); eGFR > 60.00
[2024-10-10] MEDS: VENTOLIN NEBULES 2.5 MG INH ×4 (07:23→20:10)
[2024-10-10] MEDS: PROTONIX IV 40 MG IV (07:57)
[2024-10-10] MEDS: NSS (PRESERVATIVE FREE) 10 ML IV (07:57)
[2024-10-10] MEDS: PLAQUENIL PO (07:58)
[2024-10-10] MEDS: MYCOSTATIN ORAL SUSPENSION 5 ML PO ×4 (07:58→21:08)
--- NOTE | 2024-10-10 08:33 | W.PN.HOSP.TC ---
Addendum entered and electronically signed by Maureen Kumar MD 10/10/24 08:40:
anemia--likely of chronic disease plus IVF dilution--follow for now
likely at least moderate protein calorie malnutrition even with low normal BMI--daughter states she has been losing weight
Original Note:
Today's Communication/Plan
-
replete K
CXR/VSE in AM
Assessment / Plan
Assessment / Plan
pt is an 88 year old female
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
speech eval-- Pulmonary evaluation for additional recommendations- IV Unasyn given risk for aspiration pneumonia--CXR with subtle bibasilar PNA--VSE in AM, repeat CXR in AM--cont IVF with dextrose for now
hypokalemia--replete
Suspected Oral Thrush - Nystatin for now-- Hold on steroid nebs for now.
Rheumatoid Arthritis- Stable. Continue Plaquenil.
DVT Proph-- SCDs
Code Status: DNR
Anticipated Discharge: 24 - 48 hours
Subjective/Interval History
-
Date of Service: October 10, 2024
pt teary today
Objective Data
-
Labs:
Laboratory Results
10/10/24
04:54
WBC 9.4
Hgb 9.3 L
Hct 27.9 L
Plt Count 269
Sodium 141
Potassium 3.3 L
Chloride 110 H
Carbon Dioxide 24
BUN 19 H
Creatinine 0.7
Glucose 123 H
Calcium 8.8
Total Bilirubin 0.6
AST 88 H
ALT 34
Alkaline Phosphatase 75
Vital Signs:
max temp for 24 hours
10/10/24
02:11
Temp 98.6 F
Vital Signs
Temp Pulse Resp BP Pulse Ox
98.6 F 80 16 104/62 96
10/10/24 02:11 10/10/24 07:24 10/10/24 07:24 10/10/24 06:00 10/10/24 07:24
I&O
10/09/24 10/10/24 10/11/24
06:59 06:59 06:59
Intake Total 120 / 120 1879
Balance 120 / 120 1879
Review of Systems
-
All other systems: Reviewed and negative
Physical Exam
-
General: Well Developed and Cachectic
HEENT: Normocephalic, Atraumatic, Oxygen and Other (voice sounds stronger)
Respiratory: Rhonchi (at bases bilaterally)
Cardiac: Regular Rhythm and S1/S2; Negative Murmur
GI: Soft, Nontender, Nondistended and Normal Bowel Sounds
Musculoskeletal: No Clubbing, No Cyanosis and No Edema
Neuro: Awake and Alert
Psych: Other (sad)
[2024-10-10] MEDS: KCL 270 MEQ IV (08:36)
--- NOTE | 2024-10-10 10:10 | PTCARENOTE ---
Pt teary this am, better now, Jean duran infusing at a slow rate due to burning . Warm blanket to IV site pt STATES IT HELPED
--- NOTE | 2024-10-10 10:36 | PTOTSP ---
Speech Pathology Follow Up
Chart reviewed. VSS. 2LPM via [place]. No new pertinent labs. Cleared by [facility] for PO trials. Patient received lying in bed. Teary eyed this morning. Continues to c/o copious secretions requiring oral suctioning. Attempted ice chips x4 - adequate
oral acceptance; self-fed; no overt s/s of aspiration observed. Trialed tsps of water x4 with adequate oral acceptance and piecemeal transfer; intermittent throat clearing. Cup sips of water x3 with overt s/s of aspiration on 3/3 trials requiring
oral suctioning. Unclear is s/s of aspiration is related to aspiration vs secretions. Recommend maintaining NPO status with ARHP protocol (2-3 ice chips per water sparingly with good oral care). Plan for video swallow study to further assess safest
and least restrictive diet level.
Impression:
Aspiration risk is INCREASED at this time 2/2 copious secretions with frequent suctioning requirement, CXR with subtle PNA, and shortness of breath.
Recommend:
1. NPO x ARHP Protocol (2-3 sips of water/ice chips per hour sparingly)
2. Medications non-oral
3. Oral care 3x daily
4. HOB elevated
5. UNEMPLOYMENT INSPECTOR to follow up re: repeat VSE to assess safest and least restrictive diet level
--- NOTE | 2024-10-10 11:15 | PTCARENOTE ---
Pt ambulated to waiting room with O2 and heart monitor. Daughter with her.
--- NOTE | 2024-10-10 11:39 | PTCARENOTE ---
Pt now in room OOB in chair
[2024-10-10] MEDS: SODIUM CHLORIDE 3% FOR INHALATION 1 VIAL INH ×2 (15:43→20:10)
--- NOTE | 2024-10-10 16:10 | W.PN.PUL3 ---
Today's Communication / Plan
-
NPO while video swallow is pending
Aspiration precaution
Nebulized albuterol
Start 3% with breast to assist with pulmonary toilet
Start Mucinex
Bronchoscopy discussed, can likely be done as an outpatient given she is clinically improving and remains on minimal oxygen with equal breath sounds
Check immunoglobulin levels to assess for immunodeficiency as a possible cause for her bronchiectasis
Pulmonary service will continue to follow along
Assessment
-
Assessment: 88-year-old female with a past medical history of bronchiectasis, chronic dysphagia, history of Zenker's diverticulum s/p repair, history of RA and osteoporosis who presents with chills and shortness of breath. She follows with ENT,
Dr. Painter, and was referred for Botox injection which she had this past Friday at a doctor at [place] (Dr. Sanchez). The patient had a tight muscle in her esophagus and the Botox was given to help with this. She was told after getting the Botox
injection that some patients worsen after about 4-5 days, and that seems to be exactly what happened. The patient also had COVID this past fall and seems to have developed a cough since that time. In the ER here, she was initially afebrile to 98.3
�F, pulse rate 103, respiratory rate 19, BP 130/61 and saturating 87% on room air. Saturations improved to 93% on 2 L/min nasal cannula. Labs showed leukocytosis to 16, Hb 12.2, glucose 179, TSH 1.97, and COVID-19 antigen negative. Blood cultures
were collected, and flu swab was negative. CXR obtained showing subtle patchy interstitial and alveolar opacities in the bases suspicious for a mild bibasilar pneumonia. She was given 500 cc bolus of NS 0.9%, Zosyn and admitted to the IMU for
further management. Pulmonary service consulted for additional recommendations.
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
Impression:
#Aspiration pneumonia likely due to to aspiration of secretions after her recent Botox injection to her esophagus 'wore off'
#Acute respiratory failure with hypoxia
#Acute anemia
#Transaminitis
#Chronic dysphagia with a history of Zenker's diverticulum s/p repair and recent Botox injection to the esophagus due to a 'tight muscle' (?UES)
#Bronchiectasis in the lower lobes + RML/lingula with areas of known mucous plugging + opacification in the RML/lingula seen on recent CT chest on 07/28/2024
Plan:
- Patient does have a history of mucous plugging with opacification and bronchiectasis in the RML + lingula, and lower lobe bronchiectasis
- She also was referred for Botox of her esophagus, due to a suspected upper esophageal sphincter that was tight. This was injected by Dr. Willow Sanchez at [place]. According to the patient and her daughter, this Botox injection greatly helped but
she was told that some patients get worse after 4-5 days and that is exactly what happened
- Perhaps the Botox effect wore off and then her area esophagus tightened up causing diversion of secretions to be aspirated
- Her CXR from 10/08/2024 shows bibasilar opacification with high suspicion for aspiration
- Continued antibiotics � currently on Unasyn
- GOLF STARTER AND RANGER saw her today and recommend NPO given copious secretions with risk for aspiration; plan for video swallow
- If secretions persist and remain watery + thin, then she would benefit from anticholinergics, i.e. scopolamine patch vs hyoscyamine
- Continue aspiration precautions
- Maintain SpO2 >90-94% with supplemental O2 and wean down as tolerated
- Aspiration precautions; keep HOB >30-45�
- Continue with nebulized albuterol QID; add nebulized 3% with vest therapy to assist with pulmonary toilet
- prn nebulized bronchodilators - not currently bronchospastic
- I will check immunoglobulin levels given her bronchiectasis
- I did discuss performing a bronchoscopy, which can likely be done as an outpatient, for airway clearance and also for BAL to assess for chronic infection that could be contributing to her bronchiectasis
- Patient currently on nystatin 5 mL PO QID for thrush - would complete 14 day course of this
- Incentive spirometer encouraged q1hr while awake
- Replete electrolytes with K>4, Mg>2
- Trend H/H and transfuse if needed to keep Hb>7g/dL; keep plt>20k, unless there is concern for bleeding then keep plt>50k
- Maintain euglycemia with goal BG >100 and <180
- DVT ppx: recommend to start LMWH
Code status: DNR/DNI
Pulmonary service will continue to follow along. Outpatient follow-up appointment has already been scheduled with Dr. Reeder for 11/11/2024 at 9:30 AM. May need to move this appointment up depending how her hospital course ensues.
Data:
CXR 10/08/2024: Findings suspicious for subtle bibasilar pneumonia.
Total time spent today was 37 minutes for this encounter. Time includes reviewing laboratory test/imaging results, reviewing pertinent medical records, obtaining and reviewing medical history, performing an appropriate exam, ordering medications,
tests and procedures. Time also includes documentation of this encounter, coordinating patient care and communicating with other healthcare professionals. Total time does not include separately billed tests performed on this date of service.
Subjective Data
-
Date of Service:
Date of Service: October 10, 2024
Chief Complaint: Pulmonary Follow Up
Subjective:
Patient was seen and evaluated this AM (late note entry). Patient's daughter, Mary, at bedside. All questions were answered. Patient says she feels much better today. BP 113/70, heart rate 97 and saturating 99% on 2 L/min nasal cannula.
Still has audible gurgling when she speaks. Does not endorse difficulty swallowing. Says her cough is currently stable. Denies chest pain, AGUILAR, nausea, fevers or chills.
Review of Systems
General: Other (Negative unless mentioned above)
Objective Data
Data Reviewed
Vital Signs / I&O / Oxygen:
Vital Signs
Temp Pulse Resp BP Pulse Ox
98.2 F 81 22 115/67 95
10/10/24 07:25 10/10/24 10:00 10/10/24 10:00 10/10/24 10:00 10/10/24 10:22
Intake and Output
10/09/24 10/10/24 10/11/24
06:59 06:59 06:59
Intake Total 120 / 120 1880 / 1880 320 / 320
Balance 120 / 120 1880 / 1880 320 / 320
SaO2 95
Nasal Cannula flow liters per 2
minute
Physical Exam
General: Respiratory Distress (negative), Comfortable, Chills (negative) and Sweats (negative)
HEENT: Normocephalic, Anicteric and Thrush
Cardiovascular: S1-S2, Rub (negative) and Peripheral Edema (negative)
Respiratory: Crackles (Bilateral), Rhonchi (Bilateral), Non-Labored Respirations and Stridor (negative)
GI: Soft, Non Distended, Non Tender and Normal Bowel Sounds
Neurology: AO x 3 and Tremors (negative)
Skin: Warm, Dry, Cyanosis (negative) and Jaundice (negative)
Labs/Micro/Reports
Lab Data
10/10/24 04:54
10/10/24 04:54
Microbiology
10/08/24 18:05 Blood/Venous Blood Culture - Preliminary
No Growth in 24 hours- Final report to follow
10/08/24 16:49 Blood/Venous Blood Culture - Preliminary
No Growth in 24 hours- Final report to follow
10/08/24 18:05 Nasal Swab Influenza Types A & B (KATRINA) - Final
Negative for Influenza A & B, NAAT
Negative results must be combined with clinical observations
and patient history.
Nucleic Acid Amplification test (NAAT)performed on the
[employer] platform.
[2024-10-11] VITALS: BP 126/60
[2024-10-11] MEDS: UNASYN IV ×4 (01:12→21:34)
[2024-10-11 02:00] VITALS: BP 128/65
[2024-10-11 04:00] VITALS: BP 115/58
[2024-10-11 05:13] VITALS: BMI 21.0
[2024-10-11 05:27] LABS: Hematocrit 28.4 % (37.0-47.0); Hemoglobin 9.4 g/dL (12.0-16.0); Mean Corp Hgb Conc. 33.1 g/dL (33.0-37.0); Mean Corpuscular Volume 93.7 fL (81.0-99.0); Mean Platelet Volume 9.3 fL (7.4-10.4); Platelet Count 249 10^3/uL (130-400); Red Blood Cell Count 3.03 10^6/uL (4.20-5.40); Red Cell Dist. Width 13.2 % (11.5-14.5); White Blood Cell Count 9.8 10^3/uL (4.8-10.8)
--- NOTE | 2024-10-11 05:50 | PTCARENOTE ---
Pt appearing to get sleep last night. Pt vitals stable, respiration even and unlabored spo2 98% on 2Lnc. Pt getting a little tearful in the morning with concerns about her losing wt. Her morning wt was up from yesterday and that seemed to settle her
anxiety for now. Call diaz within reach. Assessment care and vitals as charted.
[2024-10-11 05:54] LABS: ALT (SGPT) 34 U/L (0-35); AST (SGOT) 87 U/L (14-36); Alkaline Phosphatase 82 U/L (38-126); Blood Urea Nitrogen 13 mg/dl (7-17); Calcium 8.6 mg/dl (8.4-10.2); Carbon Dioxide 25 mmol/L (22-30); Chloride 112 mmol/L (98-107); Estimated Creatinine Clearance 38 ml/min; Glucose 131 mg/dl (70-99); Magnesium 2.3 mg/dl (1.6-2.3); Potassium 3.5 mmol/L (3.5-5.1); Sodium 146 mmol/L (135-145); Total Bilirubin 0.7 mg/dl (0.2-1.3); Total Protein 5.5 g/dl (6.3-8.2); eGFR > 60.00
[2024-10-11 06:00] VITALS: BP 125/62
[2024-10-11 06:02] LABS: IgA 90 mg/dl (70-400); IgG 834 mg/dl (700-1600); IgM 94 mg/dl (40-230)
[2024-10-11] MEDS: SODIUM CHLORIDE 3% FOR INHALATION 1 VIAL INH ×4 (07:20→19:28)
[2024-10-11] MEDS: VENTOLIN NEBULES 2.5 MG INH ×4 (07:20→19:28)
[2024-10-11] MEDS: PLAQUENIL PO (07:51)
[2024-10-11] MEDS: MYCOSTATIN ORAL SUSPENSION 5 ML PO ×3 (08:11→21:34)
[2024-10-11] MEDS: NSS (PRESERVATIVE FREE) 10 ML IV (08:12)
[2024-10-11] MEDS: PROTONIX IV 40 MG IV (08:12)
--- NOTE | 2024-10-11 09:04 | W.PN.PUL3 ---
Today's Communication / Plan
-
Remains on low supplemental O2, not using at home, can wean to off
Denies SOB at this time
Abx noted, but can likely stop/observe off
VSE planning today, which would determine overall plan, speech following
PT/OT assessments
OP Pulm arrangements can be made following clear d/c planning
Assessment
-
88-year-old female with a past medical history of bronchiectasis, chronic dysphagia, history of Zenker's diverticulum s/p repair, history of RA and osteoporosis who presents with chills and shortness of breath. She follows with ENT, Dr. Painter, and
was referred for Botox injection which she had this past Friday at a doctor at [place] (Dr. Sanchez). The patient had a tight muscle in her esophagus and the Botox was given to help with this. She was told after getting the Botox injection that some
patients worsen after about 4-5 days, and that seems to be exactly what happened. The patient also had COVID this past fall and seems to have developed a cough since that time. In the ER here, she was initially afebrile to 98.3 �F, pulse rate 103,
respiratory rate 19, BP 130/61 and saturating 87% on room air. Saturations improved to 93% on 2 L/min nasal cannula. Labs showed leukocytosis to 16, Hb 12.2, glucose 179, TSH 1.97, and COVID-19 antigen negative. Blood cultures were collected, and
flu swab was negative. CXR obtained showing subtle patchy interstitial and alveolar opacities in the bases suspicious for a mild bibasilar pneumonia. She was given 500 cc bolus of NS 0.9%, Zosyn and admitted to the IMU for further management.
Pulmonary service consulted for additional recommendations.
Aspiration pneumonia likely due to to aspiration of secretions after her recent Botox injection to her esophagus 'wore off'
Acute respiratory failure with hypoxia
Acute anemia
Transaminitis
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
Chronic dysphagia with a history of Zenker's diverticulum s/p repair and recent Botox injection to the esophagus due to a 'tight muscle' (?UES)
Bronchiectasis in the lower lobes + RML/lingula with areas of known mucous plugging + opacification in the RML/lingula seen on recent CT chest on 07/28/2024
History of RA
Subarachnoid cyst
Osteoporosis
Major depressive disorder
Hypothyroidism
Ventricular septal defect
RBBB
Dyslipidemia
Plan:
Patient does have a history of mucous plugging with opacification and bronchiectasis in the RML + lingula, and lower lobe bronchiectasis
History of chronic cough, last seen in office by Dr Reeder 08/20[address] chest from 07/28/2024 reviewed--She has bronchial airway thickening and mild bronchiectasis. She has some mild focal bronchiectasis at the right middle lobe
Inhaled budesonide recommended, she had been on intermittent PO prednisone tapers in the past
She also was referred for Botox of her esophagus, due to a suspected upper esophageal sphincter that was tight. This was injected by Dr. Willow Sanchez at [place]. According to the patient and her daughter, this Botox injection greatly helped but she
was told that some patients get worse after 4-5 days and that is exactly what happened
Perhaps the Botox effect wore off and then her area esophagus tightened up causing diversion of secretions to be aspirated
Her CXR from 10/08/2024 shows bibasilar opacification with high suspicion for aspiration
Continued antibiotics � currently on Unasyn
GREEN HOUSE MANAGER saw her today and recommend NPO given copious secretions with risk for aspiration; plan for video swallow 10/11
If secretions persist and remain watery + thin, then she would benefit from anticholinergics, i.e. scopolamine patch vs hyoscyamine
Continue aspiration precautions
Maintain SpO2 >90-94% with supplemental O2 and wean down as tolerated
Aspiration precautions; keep HOB >30-45�
Continue with nebulized albuterol QID; add nebulized 3% with vest therapy to assist with pulmonary toilet
prn nebulized bronchodilators - not currently bronchospastic
I will check immunoglobulin levels given her bronchiectasis
I did discuss performing a bronchoscopy, which can likely be done as an outpatient, for airway clearance and also for BAL to assess for chronic infection that could be contributing to her bronchiectasis
Patient currently on nystatin 5 mL PO QID for thrush - would complete 14 day course of this
Incentive spirometer encouraged q1hr while awake
Replete electrolytes with K>4, Mg>2
Trend H/H and transfuse if needed to keep Hb>7g/dL; keep plt>20k, unless there is concern for bleeding then keep plt>50k
Maintain euglycemia with goal BG >100 and <180
DVT ppx: recommend to start LMWH
Code status: DNR/DNI
Pulmonary service will continue to follow along. Outpatient follow-up appointment has already been scheduled with Dr. Reeder for 11/11/2024 at 9:30 AM. May need to move this appointment up depending how her hospital course ensues.
Diagnostic Data:
CXR 10/11/24- Small amount of contrast material noted in the distal esophagus. Mild bibasilar subsegmental atelectasis. No focal consolidation. No pleural effusion or pneumothorax. The cardiomediastinal silhouette is stable. Chronic degenerative
changes of the bilateral shoulders and spine.
CXR 10/08/2024: Findings suspicious for subtle bibasilar pneumonia.
CXR 01/05/14- No parenchymal opacification or vascular congestion is seen. The heart is mildly enlarged. There are atherosclerotic changes of the thoracic aorta. There are degenerative changes of the thoracic spine. There is no pneumothorax or
pleural effusion. No hilar or mediastinal lymphadenopathy is appreciated. The included osseous structures appear intact.
ECHO 05/13/24- Normal left ventricular size, wall thickness and systolic function. LV ejection fraction is 55-60% by Victoria's method of discs. Normal diastolic function. Small jennifer-membranous VSD is noted (View 37 and 72). Normal right
ventricular size and function. Mild aortic regurgitation. Mild tricuspid regurgitation. Estimated pulmonary artery pressure of 27 mmHg. Assuming a right atrial pressure of 3 mmHg. Compared to prior from July 15, 2019, known small perimembranous
VSD seen, otherwise no significant change.
-----
Total time spent today was 57 minutes for this encounter. Time includes reviewing laboratory test/imaging results, reviewing pertinent medical records, obtaining and reviewing medical history, performing an appropriate exam, ordering medications,
tests and procedures. Time also includes documentation of this encounter, coordinating patient care and communicating with other healthcare professionals. Total time does not include separately billed tests performed on this date of service.
Subjective Data
-
Date of Service:
Date of Service: October 11, 2024
Chief Complaint: Pulmonary Follow Up
Subjective:
Sitting in chair, remains on low supplemental O2
No new complaints, denies SOB
Objective Data
Data Reviewed
Vital Signs / I&O / Oxygen:
Vital Signs
Temp Pulse Resp BP Pulse Ox
98.2 F 78 18 125/62 97
10/11/24 08:04 10/11/24 07:26 10/11/24 07:26 10/11/24 06:00 10/11/24 08:00
Intake and Output
10/10/24 10/11/24 10/12/24
06:59 06:59 06:59
Intake Total 1879 / 1879 1420 / 1420
Balance 188 / 1879 1420 / 1420
SaO2 97
Nasal Cannula flow liters per 2
minute
Physical Exam
General: Respiratory Distress (negative), Comfortable, Chills (negative), Sweats (negative), Poor Appetite and Other (thin appearing)
HEENT: Normocephalic, Anicteric and Thrush
Cardiovascular: S1-S2, Regular Rhythm, Rub (negative) and Peripheral Edema (negative)
Respiratory: Crackles (Bilateral, mild), Non-Labored Respirations and Stridor (negative)
GI: Soft, Non Distended, Non Tender and Normal Bowel Sounds
Neurology: AO x 3, No Motor Deficits and Tremors (negative)
Skin: Warm, Dry, Cyanosis (negative) and Jaundice (negative)
Labs/Micro/Reports
Lab Data
10/11/24 05:09
10/11/24 05:09
Microbiology
10/08/24 18:05 Blood/Venous Blood Culture - Preliminary
No Growth in 48 hours- Final report to follow
10/08/24 16:49 Blood/Venous Blood Culture - Preliminary
No Growth in 48 hours- Final report to follow
10/08/24 18:05 Nasal Swab Influenza Types A & B (KATRINA) - Final
Negative for Influenza A & B, NAAT
Negative results must be combined with clinical observations
and patient history.
Nucleic Acid Amplification test (NAAT)performed on the
[employer] platform.
--- NOTE | 2024-10-11 09:19 | PTCARENOTE ---
Pt to Video swallow and cxr. Pt AAOx3 lungs sound coarse. @ lO2 at 96%.
--- NOTE | 2024-10-11 10:23 | PTOTSP ---
Videofluoroscopic swallow study
Profound pharyngeal dysphagia with profoundly impaired airway protection and absent pharyngoesophageal segment opening despite strategies (i.e., increasing bolus, head rotations). Patient could not initiate secondary swallows. All barium suctioned
via [place] and study terminated.
Recommend:
1. Strict NPO, consider temporary non-oral means
2. Medications via non-oral means
3. Oral care 3-5x daily
4. Hold aspiration risk hydration protocol
5. Dysphagia tx at the acute care level and repeat video swallow study prior to diet initiation.
[2024-10-11] MEDS: KCL 270 MEQ IV (10:48)
--- NOTE | 2024-10-11 10:58 | PTCARENOTE ---
Pt upset that video swallow results are not good, encouragment and hope offered to pt. Florencio Cary called and spoke with DR Cervantes at length.
[2024-10-11 11:14] VITALS: BMI 21.0
[2024-10-11] MEDS: D5/0.9% SODIUM CHLORIDE 1000 IV (14:00)
--- NOTE | 2024-10-11 14:09 | W.PN.HOSP.TC ---
Addendum entered and electronically signed by Maureen Kumar MD 10/11/24 15:45:
I saw and evaluated the patient independently. I reviewed the resident�s note and agree with findings and plan as documented by Dr. Olmedo.
GENERAL: well developed female in no apparent distress
HEENT: NC/AT--O2 NC in place
HEART: regular rate and rhythm, +S1, +S2
LUNGS : decreased BS at bases
ABDOM: soft, nontender, nondistended, + bowel sounds
EXT: no cyanosis, clubbing, or edema
NEUROLOGIC: grossly intact
Acute Hypoxemic Respiratory Failure likely due to Chronic Dysphagia with Acute on Chronic Aspiration Pneumonitis exacerbated by Botox injection 10/05/24 (6 days ago) with Chronic Bronchiectasis--Continue supplemental O2, nebs, supportive care--apprec
speech eval-- apprec Pulm- IV Unasyn--CXR with subtle bibasilar PNA, repeat no change--failed VSE, repeat CXR without change--cont IVF with dextrose for now--discussed with patient and daughter Antonina, Dobbhoff tube as short interim for
calories/nutrition--also cannot rule out that the failed video swallow was still due to the effects of Botox--therefore, would repeat video swallow Friday or of this week--if patient does not do well at that time, it might be time to
talk about hospice versus feeding tube
anemia--likely of chronic disease plus IVF dilution--follow for now
likely at least moderate protein calorie malnutrition even with low normal BMI--daughter states she has been losing weight due to poor oral intake
hypokalemia--replete
Suspected Oral Thrush-- finish Nystatin-- Hold on steroid nebs for now.
Rheumatoid Arthritis--Stable. Continue Plaquenil.
DVT Proph-- SCDs
Code Status: DNR
Original Note:
Today's Communication/Plan
-
Strict NPO
Pending discussion with daughter about possible Dobbhoff ? feeding tube? if no impr
Assessment / Plan
Assessment / Plan
Impression
Acute hypoxic respiratory failure
Hypokalemia
Suspect oral thrush
Rheumatoid arthritis
Plan
Acute hypoxic respiratory failure
Likely due to chronic dysphagia with acute on chronic aspiration pneumonitis exacerbated by Botox / with chronic bronchitis
Continue supplemental oxygen
Continue Unasyn
Continue nebs
Appreciate speech eval--- strictly NPO, inability to initiate pharyngeal swallow at all with trials of thin liquids.
Will wait for the next 3 to 4 days to evaluate if swallowing improves (wearing off from Botox)
Pending discussion with daughter(ICU nurse at ) about possible Dobbhoff ? feeding tube? if no improvement
CXR 10/11/24- Small amount of contrast material noted in the distal esophagus.Mild bibasilar subsegmental atelectasis. No focal consolidation. No pleural effusion or pneumothorax.
hypokalemia--replete
Suspected Oral Thrush - Nystatin for now-- Hold on steroid nebs for now.
Rheumatoid Arthritis- Stable. Continue Plaquenil.
DVT Proph-- SCDs
Code Status: DNR
Anticipated Discharge: > 48 hours
Subjective/Interval History
-
Date of Service: October 11, 2024
No overnight event
Objective Data
-
Labs:
Laboratory Results
10/11/24
05:09
WBC 9.8
Hgb 9.4 L
Hct 28.4 L
Plt Count 249
Sodium 146 H
Potassium 3.5
Chloride 112 H
Carbon Dioxide 25
BUN 13
Creatinine 0.8
Glucose 131 H
Calcium 8.6
Total Bilirubin 0.7
AST 87 H
ALT 34
Alkaline Phosphatase 82
Vital Signs:
Vital Signs
Temp Pulse Resp BP Pulse Ox
98.3 F 69 20 125/62 99
10/11/24 11:22 10/11/24 11:33 10/11/24 11:33 10/11/24 06:00 10/11/24 11:33
I&O
10/10/24 10/11/24 10/12/24
06:59 06:59 06:59
Intake Total 1879 1420 / 1420 320 / 320
Balance 1879 1420 / 1420 320 / 320
Review of Systems
-
All other systems: Reviewed and negative
Physical Exam
-
General: Comfortable
HEENT: Normocephalic and Atraumatic
Respiratory: Clear to Auscultation; Negative Wheezes or Rales
Cardiac: Regular Rhythm and S1/S2; Negative Murmur or Rub
GI: Soft, Nontender and Nondistended
Musculoskeletal: No Edema
Skin: Warm and Dry
Neuro: AO x 3
Psych: Calm
Data Reviewed
-
Labs: Labs Reviewed by me and Discussed with Physician
--- NOTE | 2024-10-11 14:47 | PTCARENOTE ---
Pt strict NPO ni oice chips, took ice chips from pt, pt very upset explained situation, pt still upset
--- NOTE | 2024-10-11 16:14 | CM ---
Patient seen at bedside with physicians. Patient is for possible GI consult pending family discussion and plan is to return to independent living with family supports. Patient may need VN for further supports at the physician. CM will continue to
follow for discharge planning needs.
Plan; home with VN vs SNF
[2024-10-11] MEDS: MYCOSTATIN ORAL SUSPENSION PO (19:38)
[2024-10-11 23:10] VITALS: BP 142/71
--- NOTE | 2024-10-12 03:28 | PTCARENOTE ---
Addendum entered by Maria Alejandra Boateng RN 10/12/24 05:32:
Pt agreeable to wear scd's at this time, education given.
Original Note:
Pt appearing to able to get sleep last night. Respiration even unlabored. SPO2 98% on 1L, attempting to wean off NC. Assessment care and vitals as charted. Call diaz within reach.
[2024-10-12] MEDS: UNASYN IV ×2 (03:37→08:30)
[2024-10-12 04:14] LABS: % Basophils 0.2 % (0-2); % Eosinophils 0.1 % (0-6); % Lymphocytes 9.1 % (20.5-51.1); % Monocytes 6.6 % (1.7-9.3); Absolute Immature Granulocytes 0.1 10^3/uL (0-0.05); Absolute Monocytes 0.7 10^3/uL (0.1-0.6); Absolute Neutrophils 8.6 10^3/uL (1.4-6.5); Hematocrit 26.3 % (37.0-47.0); Hemoglobin 8.7 g/dL (12.0-16.0); Mean Corp Hgb Conc. 33.1 g/dL (33.0-37.0); Mean Corpuscular Hgb 31.2 pg (27.0-31.0); Mean Corpuscular Volume 94.3 fL (81.0-99.0); Mean Platelet Volume 9.6 fL (7.4-10.4); Nucleated Red Blood Cells % 0 %; Platelet Count 235 10^3/uL (130-400); Red Blood Cell Count 2.79 10^6/uL (4.20-5.40); Red Cell Dist. Width 13.3 % (11.5-14.5); White Blood Cell Count 10.4 10^3/uL (4.8-10.8)
[2024-10-12 04:31] LABS: Blood Urea Nitrogen 11 mg/dl (7-17); Calcium 8.3 mg/dl (8.4-10.2); Carbon Dioxide 23 mmol/L (22-30); Chloride 115 mmol/L (98-107); Estimated Creatinine Clearance 44 ml/min; Glucose 114 mg/dl (70-99); Magnesium 2.2 mg/dl (1.6-2.3); Potassium 3.4 mmol/L (3.5-5.1); Sodium 146 mmol/L (135-145); eGFR > 60.00
[2024-10-12 04:54] VITALS: BMI 20.8
[2024-10-12] MEDS: D5/0.9% SODIUM CHLORIDE IV ×2 (06:19→06:26)
[2024-10-12] MEDS: D5/0.9% SODIUM CHLORIDE 1000 IV (06:26)
[2024-10-12 07:12] VITALS: BP 170/79
[2024-10-12] MEDS: VENTOLIN NEBULES 2.5 MG INH ×3 (07:21→19:42)
[2024-10-12] MEDS: SODIUM CHLORIDE 3% FOR INHALATION 1 VIAL INH ×2 (07:21→19:42)
[2024-10-12 07:30] VITALS: BP 170/79
[2024-10-12] MEDS: MYCOSTATIN ORAL SUSPENSION PO ×4 (08:24→20:47)
[2024-10-12] MEDS: PLAQUENIL PO (08:24)
[2024-10-12] MEDS: PROTONIX IV 40 MG IV (08:30)
[2024-10-12] MEDS: NSS (PRESERVATIVE FREE) 10 ML IV (08:30)
--- NOTE | 2024-10-12 09:07 | W.PN.PUL3 ---
Today's Communication / Plan
-
Aspiration pneumonitis likely, given quick resolution of symptoms, now stable on RA/clear on exam
NPO, family agreeable to PEG, GI consult
Can likely stop abx, repeat imaging if needed
Stop airway clearance measures, continue nebs TID
We discussed FU OP with repeat testing to evaluate lung standpoint
Updated family members at bedside and via telephone
Assessment
-
88-year-old female with a past medical history of bronchiectasis, chronic dysphagia, history of Zenker's diverticulum s/p repair, history of RA and osteoporosis who presents with chills and shortness of breath. She follows with ENT, Dr. Painter, and
was referred for Botox injection which she had this past Friday at a doctor at [facility] (Dr. Sanchez). The patient had a tight muscle in her esophagus and the Botox was given to help with this. She was told after getting the Botox injection that some
patients worsen after about 4-5 days, and that seems to be exactly what happened. The patient also had COVID this past fall and seems to have developed a cough since that time. In the ER here, she was initially afebrile to 98.3 �F, pulse rate 103,
respiratory rate 19, BP 130/61 and saturating 87% on room air. Saturations improved to 93% on 2 L/min nasal cannula. Labs showed leukocytosis to 16, Hb 12.2, glucose 179, TSH 1.97, and COVID-19 antigen negative. Blood cultures were collected, and
flu swab was negative. CXR obtained showing subtle patchy interstitial and alveolar opacities in the bases suspicious for a mild bibasilar pneumonia. She was given 500 cc bolus of NS 0.9%, Zosyn and admitted to the IMU for further management.
Pulmonary service consulted for additional recommendations.
Aspiration pneumonitis
Acute respiratory failure with hypoxia, resolved
Acute anemia
Transaminitis
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
Chronic dysphagia with a history of Zenker's diverticulum s/p repair and recent Botox injection to the esophagus due to a 'tight muscle' (?UES)
Bronchiectasis in the lower lobes + RML/lingula with areas of known mucous plugging + opacification in the RML/lingula seen on recent CT chest on 07/28/2024
History of RA
Subarachnoid cyst
Osteoporosis
Major depressive disorder
Hypothyroidism
Ventricular septal defect
RBBB
Dyslipidemia
Plan:
Weaned off O2, stable on RA
No further cough/mucus, on vest/chest PT
Can stop airway clearance, continue nebs
Patient does have a history of mucous plugging with opacification and bronchiectasis in the RML + lingula, and lower lobe bronchiectasis
History of chronic cough, last seen in office by Dr Reeder 08/2024
[address] chest from 07/28/2024 reviewed--She has bronchial airway thickening and mild bronchiectasis. She has some mild focal bronchiectasis at the right middle lobe
Inhaled budesonide recommended, she had been on intermittent PO prednisone tapers in the past
Obtains routine botox of her esophagus, due to a suspected upper esophageal sphincter that was tight.
Followed by Willow Sanchez at [facility].
[place] to be due to Botox effect wore off w/ return of secretions to be aspirated
Her CXR from 10/08/2024 shows bibasilar opacification possible aspiration vs atelectasis
Continued antibiotics � currently on Unasyn
LEAD FIRE PROTECTION ENGINEER saw her today and recommend NPO given copious secretions with risk for aspiration; plan for video swallow 10/11--failed
Speech following, family would like to move forward with PEG likely, GI consult
Continue aspiration precautions
Aspiration pneumonitis likely, respiratory complaints have quickly resolved
Maintain SpO2 >90-94% with supplemental O2 and wean down as tolerated
Aspiration precautions; keep HOB >30-45�
Continue with nebulized albuterol QID; change to TID
Stop nebulized 3%/vest therapy/pulmonary toilet
prn nebulized bronchodilators - not currently bronchospastic
Patient currently on nystatin 5 mL PO QID for thrush - would complete 14 day course of this
Incentive spirometer encouraged q1hr while awake
Replete electrolytes with K>4, Mg>2
Trend H/H and transfuse if needed to keep Hb>7g/dL; keep plt>20k, unless there is concern for bleeding then keep plt>50k
Maintain euglycemia with goal BG >100 and <180
DVT ppx: recommend to start LMWH
Code status: DNR/DNI
Pulmonary service will continue to follow along. Outpatient follow-up appointment has already been scheduled with Dr. Reeder for 11/11/2024 at 9:30 AM.
May need to move this appointment up depending how her hospital course ensues.
Will update daughter via TT (updated yesterday)
We will follow
Diagnostic Data:
CXR 10/11/24- Small amount of contrast material noted in the distal esophagus. Mild bibasilar subsegmental atelectasis. No focal consolidation. No pleural effusion or pneumothorax. The cardiomediastinal silhouette is stable. Chronic degenerative
changes of the bilateral shoulders and spine.
CXR 10/08/2024: Findings suspicious for subtle bibasilar pneumonia.
CXR 01/05/14- No parenchymal opacification or vascular congestion is seen. The heart is mildly enlarged. There are atherosclerotic changes of the thoracic aorta. There are degenerative changes of the thoracic spine. There is no pneumothorax or
pleural effusion. No hilar or mediastinal lymphadenopathy is appreciated. The included osseous structures appear intact.
ECHO 05/13/24- Normal left ventricular size, wall thickness and systolic function. LV ejection fraction is 55-60% by Victoria's method of discs. Normal diastolic function. Small jennifer-membranous VSD is noted (View 37 and 72). Normal right
ventricular size and function. Mild aortic regurgitation. Mild tricuspid regurgitation. Estimated pulmonary artery pressure of 27 mmHg. Assuming a right atrial pressure of 3 mmHg. Compared to prior from July 15, 2019, known small perimembranous
VSD seen, otherwise no significant change.
-----
Total time spent today was 51 minutes for this encounter. Time includes reviewing laboratory test/imaging results, reviewing pertinent medical records, obtaining and reviewing medical history, performing an appropriate exam, ordering medications,
tests and procedures. Time also includes documentation of this encounter, coordinating patient care and communicating with other healthcare professionals. Total time does not include separately billed tests performed on this date of service.
Subjective Data
-
Date of Service:
Date of Service: October 12, 2024
Chief Complaint: Pulmonary Follow Up
Subjective:
Off oxygen, rapid improvement noted
Family member at bedside
No new complaints, has dry mouth but remains on IVFs
NPO, failed VSE
Objective Data
Data Reviewed
Vital Signs / I&O / Oxygen:
Vital Signs
Temp Pulse Resp BP Pulse Ox
97.6 F 76 18 142/71 97
10/12/24 05:07 10/12/24 07:26 10/12/24 07:26 10/11/24 23:10 10/12/24 07:26
Intake and Output
10/11/24 10/12/24 10/13/24
06:59 06:59 06:59
Intake Total 1540 / 1540 2280 / 2280
Balance 1540 / 1540 2280 / 2280
SaO2 97
Nasal Cannula flow liters per 1
minute
Physical Exam
General: Respiratory Distress (negative), Comfortable, Chills (negative), Sweats (negative), Poor Appetite and Other (thin appearing)
HEENT: Normocephalic, Anicteric and Thrush
Cardiovascular: S1-S2, Regular Rhythm, Rub (negative) and Peripheral Edema (negative)
Respiratory: Clear, Non-Labored Respirations and Stridor (negative)
GI: Soft, Non Distended, Non Tender and Normal Bowel Sounds
Neurology: AO x 3, No Motor Deficits and Tremors (negative)
Skin: Warm, Dry, Cyanosis (negative) and Jaundice (negative)
Labs/Micro/Reports
Lab Data
10/12/24 03:56
10/12/24 03:56
Microbiology
10/08/24 18:05 Blood/Venous Blood Culture - Preliminary
No Growth in 72 hours- Final report to follow
10/08/24 16:49 Blood/Venous Blood Culture - Preliminary
No Growth in 72 hours- Final report to follow
[2024-10-12] MEDS: KCL 270 MEQ IV (09:11)
--- NOTE | 2024-10-12 09:34 | PN.CDI ---
Addendum entered and electronically signed by Maureen Kumar MD 10/12/24 15:29:
Documentation complete
Original Note:
CDI
- -
CDI:
Physician Documentation Request
Admit Date: 10/08/24 20:55
Dear Doctor Honorio,
Patient presented to ED with shortness of breath and low pulse ox.
Patient is being managed for acute on chronic aspiration pneumonitis exacerbated by Botox injection.
Documented vital signs show patient anywhere between 1-3 liters of oxygen use.
Recognized standard criteria for respiratory failure includes:
(Source: [facility] Mar/Apr 2013)
ABGs (1 or more)
�PO2 <60 or RA SpO2 <91%
�PcO2 >50 and pH <7.35
�pO2 decrease or pcO2 increase by 10 mmHg from baseline if known Symptoms:
�Tachypnea, SOB, dyspnea
�Pallor or cyanosis
�Anxiety or restlessness
�Use of accessory muscles
�Retractions (grunting in newborns)
�Unable to speak in complete sentences
Supplemental O2 requirement of 40% (5LPM) or more Intubation is not required
Based on the above information and the recognized standard for respiratory failure could you please verify this diagnoses is still accurate and reflective of the patient�s condition to ensure quality of the medical record.
Please clarify in the Progress Notes:
�Respiratory failure is/was present and is a clinical diagnosis based on (please include this additional support in the medical record)
�After study respiratory failure has been ruled out
�Other
Use of terms such as suspected, likely, concern for, or probable (associated with a specific diagnosis that is being evaluated, monitored, or treated as if it exists) are acceptable and can be coded in the inpatient setting, when documented at the
time of discharge.
Thank you,
Marcela Gallagher RN, BSN
CDI Specialist
tiger text
Please use your independent medical judgment in providing your response.
--- NOTE | 2024-10-12 11:33 | CON.GI ---
Addendum entered and electronically signed by Tee Cha DO 10/12/24 15:17:
I saw and examined the patient.
The ZYGLO INSPECTOR's note was reviewed and I agree with the detailed note.
Comment: Ms Sam is an 88 y.o female with a past medical history as outlined below along with chronic dysphagia and recent hx of Zenker's diverticulum repair (prior cricopharyngeal myotomy in 2019 at [facility] and s/p botox 1 week ago with
Daniel at [facility]) who initially presented on 10/08 with SOB found to have concern for aspiration pneumonitis. Now with ongoing acute on chronic dysphagia this admission and need for ongoing nutrition given her persistent dysphagia. Discussed with both
patient and patient's daughter at length regarding possibility of pursuing an EGD w/ PEG placement. She denies any prior abdominal surgeries, history of liver disease, ascites or other known complications from GI standpoint in regards to placing an
endoscopically placed PEG tube. Additionally, patient further expressed that this is also in lines with her current GOC. Reasonable at this time particularly if her dysphagia were to eventually improve after her previous Botox injections and
discussed the potential reversibility of a PEG tube could be removed in the several months as an outpatient if her dysphagia were to be improved. This was also discussed with her ENT physician and may proceed with an EGD w/ PEG from an ENT
standpoint given her recent procedure. Otherwise, she is not on any antiplatelets or anticoagulants. Discussed risks and benefits this afternoon. Both patient and patient's daughter amenable to proceeding with endoscopy with PEG placement. Keep NPO
at MT. See rest of care as outlined below.
Discussed with primary internal medicine team and patient's daughter, Antonina, as well this afternoon.
Original Note:
Consultation
-
Date/Time Consultation Requested: 10/12/24 1100
Date/Time Consultation Performed: 10/12/24 1130
Requesting Provider: Casper Olmedo MD
Performing Provider: TRACY Castro, Tee Cha DO
Reason for Consultation: peg evaluation
Medical History
Chief Complaint / HPI
History of Present Illness:
Pt is a 88yo with hx temporal craniotomy for arachnoid cyst drainage, [facility] 2021, chronic dysphagia with hx Zenker's diverticulum repair with cricopharyngeal myotomy [address] Brizuela at [facility] and recent botox [address] Sanchez at
[facility], diverticulosis, RBBB, osteoarthritis, RA, DJD bronchiectasis with admission 10/08 with shortness of breath with concern for aspiration pneumonitis and difficulty with swallowing. In review pt follows with dr. Painter from ENT and Dr. Reeder
and recently referred to Dr. Sanchez(ENT) at [facility] and completed botox injection last week tight muscle ? UES. She has had chronic dysphagia and did have some improvement after Zenker's surgery but states progressive difficulty over last year with
about 20 lbs wt loss. She admits to slow eating and use of ensure for supplementation. She also admits to taking food back to apartment with public meals and not eating much with family parties for fear of choking. She has been seen by speech
therapy during admission and completed VSE 10/11 with profound pharyngeal dysphagia with impairment of airway protection and absent pharyngoesophageal segment despite swallowing strategies. She was recommended NPO with consider temp non oral means
of diet. Asked as patient and family agreeable to peg tube. On admission she is also noted with anemia with hbg 12.2 then down to 8.7, hypernatremia, hypokalemia, and mild transaminase elevation.
Pt otherwise admits to periods of regurgitation of food with eating. denies odynophagia, GERD, hematemesis, abdominal pain, diarrhea, constipation or rectal bleeding. No hx EGD but has had ENT scope last 1 weeks ago. Hx prior colonoscopies
last 2015 with diverticulosis. Denies anticoagulation prior to admission.
Past Medical History
Past Medical History: Arrhythmias (RBBB) and Other (diverticulosis, osteoarthritis, RA, DJD, chronic dysphagia, bronchietasis, colon polyps)
Past Surgical History: Orthopedic (left THR 2016, right 2009, wisdom teeth extraction) and Other (temporal craniotomy for arachnoid cyst drainage, [facility] [address] chralton, Zenker's diverticulum repair with cricopharyngeal myotomy [address] Dr. Brizuela at
[facility] )
Social History
Tobacco: Non-Smoker
Alcohol: None
Drug: None
Living: Other ([facility] )
Employment: Retired
Family History
Family History: Other (no family hx GI issues )
Allergies / Home Medications
Allergy/AdvReac Type Severity Reaction Status Date / Time
No Known Allergies Allergy Verified 10/08/24 16:34
�Medication �Instructions �Recorded
cholecalciferol (vitamin D3) 25 1,000 unit PO DAILY Supplement 01/05/14
mcg (1,000 unit) capsule
ascorbic acid (vitamin C) 500 mg 500 mg PO DAILY Supplement 10/08/24
tablet (Vitamin C)
budesonide 0.5 mg/2 mL suspension 0.5 mg inhalation R BID 10/08/24
for nebulization Lung/Breathing Issues
calcium carbonate 500 mg PO DAILY Supplement 10/08/24
denosumab 60 mg/mL subcutaneous 60 mg SC [id number] osteoporosis 10/08/24
syringe (Prolia)
hydroxychloroquine 200 mg tablet 400 mg PO DAILY RA 10/08/24
ipratropium bromide 0.02 % 2.5 ml inhalation R BID 10/08/24
solution for inhalation Lung/Breathing Issues
naproxen sodium 220 mg tablet 220 mg PO BIDPRN PRN mild pain 10/08/24
(Aleve)
pantoprazole 40 mg tablet,delayed 40 mg PO DAILY Gastrointestinal 10/08/24
release Issue
sertraline 50 mg tablet 75 mg PO DAILY Mental Health 10/08/24
therapeutic multivitamin 1 tab PO DAILY Supplement 10/08/24
Review of Systems
-
History Source: Patient and Family
Constitutional: Reports Weight Loss (20 lbs over last year ) and Chills (on admission )
EENT: Reports Other (worsening dysphagia )
Respiratory: Reports Cough, Trouble Breathing (on admission now improving) and Other (difficulty controlling secretions )
Cardiac: Reports No Symptoms
Abdomen/GI: Reports No Symptoms and Other (reguritation of food at time )
: Reports No Symptoms
Musculoskeletal: Reports No Symptoms
Skin: Reports No Symptoms
Neurological: Reports Weakness
Endocrine: Reports No Symptoms
Hematologic/Lymphatic: Reports No Symptoms
Vital Signs
Temp Pulse Resp BP Pulse Ox
97.8 F 76 18 142/71 96
10/12/24 07:40 10/12/24 07:26 10/12/24 07:26 10/11/24 23:10 10/12/24 08:08
Physical Exam
Exam
General: Well Developed and Other (thin appearing)
HEENT: Normocephalic and Anicteric
Respiratory: Other (decreased bases, occasional cough with constant clearing of throat )
Cardiac: Regular Rhythm
GI: Soft, Non Tender and Non Distended
Musculoskeletal: No Clubbing and No Cyanosis
Skin: Warm and Dry
Neuro: Awake, Alert and AO x 3
Psych: Calm
Results
WBC 10.4 10^3/uL (4.8-10.8) 10/12/24 03:56
Hgb 8.7 g/dL (12.0-16.0) L 10/12/24 03:56
Hct 26.3 % (37.0-47.0) L 10/12/24 03:56
MCV 94.3 fL (81.0-99.0) 10/12/24 03:56
Plt Count 235 10^3/uL (130-400) 10/12/24 03:56
Absolute Neuts (auto) 8.6 10^3/uL (1.4-6.5) H 10/12/24 03:56
PT 15.4 Sec (11.4-14.6) H 10/08/24 16:49
INR 1.19 10/08/24 16:49
Sodium 146 mmol/L (135-145) H 10/12/24 03:56
Potassium 3.4 mmol/L (3.5-5.1) L 10/12/24 03:56
Chloride 115 mmol/L (98-107) H 10/12/24 03:56
Carbon Dioxide 23 mmol/L (22-30) 10/12/24 03:56
BUN 11 mg/dl (7-17) 10/12/24 03:56
Creatinine 0.7 mg/dL (0.6-1.0) 10/12/24 03:56
Calcium 8.3 mg/dl (8.4-10.2) L 10/12/24 03:56
Total Bilirubin 0.7 mg/dl (0.2-1.3) 10/11/24 05:09
AST 87 U/L (14-36) H 10/11/24 05:09
ALT 34 U/L (0-35) 10/11/24 05:09
Alkaline Phosphatase 82 U/L (38-126) 10/11/24 05:09
Diagnostic Image Results:
10/11/24 CXR
Small amount of contrast material noted in the distal esophagus.
Mild bibasilar subsegmental atelectasis. No focal consolidation. No pleural effusion or pneumothorax. The cardiomediastinal silhouette is stable. Chronic degenerative changes of the bilateral shoulders and spine.
10/08/24 CXR
Findings suspicious for subtle bibasilar pneumonia.
Finalized
Prior GI Procedures:
EGD: none
Colonoscopy: 03/2016- [facility]-- Diverticulosis in the sigmoid colon.
- The examination was otherwise normal.
colonoscopy : 04/2011 [facility]
- One 3 mm polyp in the cecum. Resected and retrieved. bx serrated polyp c/w HP polyp
- Diverticulosis sigmoid colon.
- The examination was otherwise normal.
Assessment / Plan
-
Pt is a 88yo with hx temporal craniotomy for arachnoid cyst drainage, [facility] 2021, chronic dysphagia with hx Zenker's diverticulum repair with cricopharyngeal myotomy [address] Brizuela at [facility] and recent botox [address] Sanchez at
[facility], diverticulosis, RBBB, osteoarthritis, RA, DJD bronchiectasis with admission 10/08 with shortness of breath with concern for aspiration pneumonitis and difficulty with swallowing. In review pt follows with dr. Painter from ENT and Dr. Reeder
and recently referred to Dr. Sanchez(ENT) at [facility] and completed botox injection last week with noted tight muscle ? UES. She has had chronic dysphagia and did have some improvement after Zenker's surgery but states progressive difficulty over last
year with about 20 lbs wt loss. She admits to slow eating and use of ensure for supplementation. She also admits to taking food back to apartment with public meals and not eating much with family parties for fear of choking. She has been seen by
speech therapy during admission and completed VSE 10/11 with profound pharyngeal dysphagia with impairment of airway protection and absent pharyngoesophageal segment despite swallowing strategies. She was recommended NPO with consider temp non oral
means of diet. Asked as patient and family agreeable to peg tube. On admission she is also noted with anemia with hbg 12.2 then down to 8.7, hypernatremia, hypokalemia, and mild transaminase elevation.
-worsening of chronic dysphagia
-wt loss
-hypoxemia on admission with concern for aspiration pneumonitis
-anemia
-electrolyte imbalance hyponatremia, hyperkalemia
-s/p ENT eval last week with botox injection
-hx Zenkers with prior repair with cricopharyngeal myomotomy 2019 Dr. Wilcox- [facility]
-mild transaminase elevation
-possible oral thrush
other med problems:
-diverticulosis
-RBBB
-RA
-DJD
-bronchiectasis
PLAN:
etiology of dysphagia related to ENT issue with ? tight EUS in setting of prior Zenker's with repair vs other
in addition to dysphagia pt reports slow eating and wt loss over last year
reviewed for peg with patient and family for dysphagia and for wt loss -- she is agreeable to proceed
discussed risk/benefits
I left message for Dr. Sanchez at [facility] just to review with any other options and to review prior to EGD
will consult dietary for tube feed recs
cont to correct electrolytes per medical team
cont to follow with speech-- pt goal to be able to at least do some pleasure foods
-
-
Thank you for consultation and allowing me to participate in the patient's care. Please call the employee relation manager GI physician during the after hours with any questions or concerns.
[2024-10-12] MEDS: D5/0.45%NACL 1000 IV (11:46)
--- NOTE | 2024-10-12 13:24 | W.PN.HOSP.TC ---
Addendum entered and electronically signed by Maureen Kumar MD 10/12/24 15:28:
I saw and evaluated the patient independently. I reviewed the resident�s note and agree with findings and plan as documented by Dr. Olmedo.
GENERAL: well developed female in no apparent distress
HEENT: NC/AT
HEART: regular rate and rhythm, +S1, +S2
LUNGS : decreased BS at bases
ABDOM: soft, nontender, nondistended, + bowel sounds
EXT: no cyanosis, clubbing, or edema
NEUROLOGIC: grossly intact
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
Pulm- -stopping IV Unasyn--CXR with subtle bibasilar PNA, repeat no change--failed VSE--cont IVF with dextrose for now--discussed with patient and daughter Antonina, re: Dobhoff vs PEG--Dr. Olmedo received call back from Dr. Ledesma who agrees with PEG
tube as effects of Botox can last weeks--GI consulted for PEG--planning for tomorrow
anemia--likely of chronic disease plus IVF dilution--follow for now
likely at least moderate protein calorie malnutrition even with low normal BMI--daughter states she has been losing weight due to poor oral intake
hypokalemia--replete
Suspected Oral Thrush-- finish Nystatin-- Hold on steroid nebs for now.
Rheumatoid Arthritis--Stable. Continue Plaquenil.
DVT Proph-- SCDs
Code Status: DNR
Original Note:
Today's Communication/Plan
-
Stop antibiotics will check chest x-ray in a.m.
Discussed with family and patient, they agreed agreeable on PEG tube
Consult GI
Assessment / Plan
Assessment / Plan
Impression
Acute hypoxic respiratory failure
Hypokalemia
Suspect oral thrush
Rheumatoid arthritis
Plan
Acute hypoxic respiratory failure-- resolved
on RA
Likely due to chronic dysphagia with acute on chronic aspiration pneumonitis exacerbated by Botox with chronic bronchitis
Stop antibiotics will check chest x-ray in a.m.
Continue nebs
Appreciate speech eval--- strictly NPO, inability to initiate pharyngeal swallow at all with trials of thin liquids.
Discussed with family and patient, they agreed agreeable on PEG tube
Consult GI
Discussed with Dr. Willow Sanchez, ENT specialist outpatient, she is agreeable to PEG tube as well. She mentioned that effect of Botox may take few weeks to wear off. ENT will follow outpatient
CXR 10/11/24- Small amount of contrast material noted in the distal esophagus.Mild bibasilar subsegmental atelectasis. No focal consolidation. No pleural effusion or pneumothorax.
hypokalemia--replete
Suspected Oral Thrush - Nystatin for now-- Hold on steroid nebs for now.
Rheumatoid Arthritis- Stable. Continue Plaquenil.
DVT Proph-- SCDs
Code Status: DNR
Anticipated Discharge: > 48 hours
Subjective/Interval History
-
Date of Service: October 12, 2024
No overnight events. Patient is on room air
Objective Data
-
Labs:
Laboratory Results
10/12/24
03:56
WBC 10.4
Hgb 8.7 L
Hct 26.3 L
Plt Count 235
Sodium 146 H
Potassium 3.4 L
Chloride 115 H
Carbon Dioxide 23
BUN 11
Creatinine 0.7
Glucose 114 H
Calcium 8.3 L
Vital Signs:
Vital Signs
Temp Pulse Resp BP Pulse Ox
97.8 F 76 18 170/79 96
10/12/24 07:40 04/22/25 07:26 10/12/24 07:26 10/12/24 07:12 10/12/24 08:08
I&O
10/11/24 10/12/24 10/13/24
06:59 06:59 06:59
Intake Total 1540 / 1540 2280 / 2280
Balance 1540 / 1540 2280 / 2280
Review of Systems
-
All other systems: Reviewed and negative
Physical Exam
-
General: No Apparent Distress and Comfortable
HEENT: Normocephalic and Atraumatic
Respiratory: Clear to Auscultation; Negative Wheezes, Rales or Rhonchi
Cardiac: Regular Rhythm and S1/S2; Negative Murmur or Rub
GI: Soft, Nontender and Nondistended
Musculoskeletal: No Edema
Skin: Warm and Dry
Neuro: AO x 3
Psych: Calm
Data Reviewed
-
Labs: Labs Reviewed by me and Discussed with Physician
--- NOTE | 2024-10-12 13:59 | PTCARENOTE ---
Pt for transfer to . Report called to receiving RN. Belongings collected from room. Transferred to 2137 via stretcher.
[2024-10-12 14:17] VITALS: BP 146/70
--- NOTE | 2024-10-12 15:00 | PTCARENOTE ---
Patient transferred from IMU into room 2136. Patient AAOx3, VSS, oriented to room and call diaz. Patient strict NPO, suction in place, patient independently orally suctioning white/clear secretions PRN. Patient for PEG tube placement in AM. IVF
infusing through R hand IV, patient ambulatory in room/brasher with standby assist.
--- NOTE | 2024-10-12 16:12 | CM ---
Patient seen at bedside with physicians, and patient daughter Mary. Discussions about peg tube and further medical treatment with physicians. Patient stated that she was interested in peg tube. CM will continue to follow for discharge planning
needs.
Plan; home with VN vs SNF; watch for PT/OT assessment/medical treatment plan.
[2024-10-12 20:53] LABS: IgG Subclass 1 456 mg/dL (240-1118); IgG Subclass 2 178 mg/dL (124-549); IgG Subclass 3 21 mg/dL (21-134); IgG Subclass 4 79 mg/dL (1-123)
[2024-10-12 23:14] VITALS: BP 132/74
[2024-10-13] VITALS (7 sets, daily range): BP systolic 135–147; BP diastolic 59–77; BMI 21.4
[2024-10-13] MEDS: D5/0.45%NACL 1000 IV ×2 (00:09→13:43)
[2024-10-13] MEDS: VENTOLIN NEBULES 2.5 MG INH ×3 (07:24→20:01)
[2024-10-13] MEDS: PLAQUENIL PO (07:54)
[2024-10-13] MEDS: MYCOSTATIN ORAL SUSPENSION PO (07:54)
[2024-10-13] MEDS: NSS (PRESERVATIVE FREE) 10 ML IV (07:55)
[2024-10-13] MEDS: PROTONIX IV 40 MG IV (07:55)
[2024-10-13 08:29] LABS: % Basophils 0.3 % (0-2); % Immature Granulocytes 1.2 % (0-0.5); % Lymphocytes 17.7 % (20.5-51.1); % Monocytes 7.9 % (1.7-9.3); % Neutrophils 70.9 % (42.2-75.2); Absolute Eosinophils 0.2 10^3/uL (0-0.7); Absolute Immature Granulocytes 0.1 10^3/uL (0-0.05); Absolute Lymphocytes 1.6 10^3/uL (1.2-3.4); Absolute Monocytes 0.7 10^3/uL (0.1-0.6); Absolute Neutrophils 6.5 10^3/uL (1.4-6.5); Hematocrit 27.4 % (37.0-47.0); Mean Corp Hgb Conc. 32.8 g/dL (33.0-37.0); Mean Corpuscular Hgb 30.5 pg (27.0-31.0); Mean Corpuscular Volume 92.9 fL (81.0-99.0); Nucleated Red Blood Cells % 0 %; Platelet Count 275 10^3/uL (130-400); Red Blood Cell Count 2.95 10^6/uL (4.20-5.40); Red Cell Dist. Width 13.3 % (11.5-14.5); White Blood Cell Count 9.1 10^3/uL (4.8-10.8)
--- NOTE | 2024-10-13 09:08 | W.PN.PUL3 ---
Today's Communication / Plan
-
PEG today
Speech following
Reviewed case with family at bedside
Will need further op FU at discharge
Assessment
-
88-year-old female with a past medical history of bronchiectasis, chronic dysphagia, history of Zenker's diverticulum s/p repair, history of RA and osteoporosis who presents with chills and shortness of breath. She follows with ENT, Dr. Painter, and
was referred for Botox injection which she had this past Friday at a doctor at [facility] (Dr. Sanchez). The patient had a tight muscle in her esophagus and the Botox was given to help with this. She was told after getting the Botox injection that some
patients worsen after about 4-5 days, and that seems to be exactly what happened. The patient also had COVID this past fall and seems to have developed a cough since that time. In the ER here, she was initially afebrile to 98.3 �F, pulse rate 103,
respiratory rate 19, BP 130/61 and saturating 87% on room air. Saturations improved to 93% on 2 L/min nasal cannula. Labs showed leukocytosis to 16, Hb 12.2, glucose 179, TSH 1.97, and COVID-19 antigen negative. Blood cultures were collected, and
flu swab was negative. CXR obtained showing subtle patchy interstitial and alveolar opacities in the bases suspicious for a mild bibasilar pneumonia. She was given 500 cc bolus of NS 0.9%, Zosyn and admitted to the IMU for further management.
Pulmonary service consulted for additional recommendations.
Aspiration pneumonitis
Acute respiratory failure with hypoxia, resolved
Acute anemia
Transaminitis
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
Chronic dysphagia with a history of Zenker's diverticulum s/p repair and recent Botox injection to the esophagus due to a 'tight muscle' (?UES)
Bronchiectasis in the lower lobes + RML/lingula with areas of known mucous plugging + opacification in the RML/lingula seen on recent CT chest on 07/28/2024
History of RA
Subarachnoid cyst
Osteoporosis
Major depressive disorder
Hypothyroidism
Ventricular septal defect
RBBB
Dyslipidemia
Plan:
Weaned off O2, stable on RA
No further cough/mucus, on vest/chest PT
Can stop airway clearance, continue nebs
Patient does have a history of mucous plugging with opacification and bronchiectasis in the RML + lingula, and lower lobe bronchiectasis
History of chronic cough, last seen in office by Dr Reeder 08/2024
[address] chest from 07/28/2024 reviewed--She has bronchial airway thickening and mild bronchiectasis. She has some mild focal bronchiectasis at the right middle lobe
Inhaled budesonide recommended, she had been on intermittent PO prednisone tapers in the past
Obtains routine botox of her esophagus, due to a suspected upper esophageal sphincter that was tight.
Followed by Willow Sanchez at [facility].
Means to be due to Botox effect wore off w/ return of secretions to be aspirated
Her CXR from 10/08/2024 shows bibasilar opacification possible aspiration vs atelectasis
Continued antibiotics � currently on Unasyn
TRAFFIC SIGN ERECTION SUPERVISOR saw her today and recommend NPO given copious secretions with risk for aspiration; plan for video swallow 10/11--failed
Speech following, family would like to move forward with PEG likely, GI consult
Continue aspiration precautions
Aspiration pneumonitis likely, respiratory complaints have quickly resolved
Maintain SpO2 >90-94% with supplemental O2 and wean down as tolerated
Aspiration precautions; keep HOB >30-45�
Continue with nebulized albuterol QID; change to TID
Stop nebulized 3%/vest therapy/pulmonary toilet
prn nebulized bronchodilators - not currently bronchospastic
Patient currently on nystatin 5 mL PO QID for thrush - would complete 14 day course of this
Incentive spirometer encouraged q1hr while awake
Replete electrolytes with K>4, Mg>2
Trend H/H and transfuse if needed to keep Hb>7g/dL; keep plt>20k, unless there is concern for bleeding then keep plt>50k
Maintain euglycemia with goal BG >100 and <180
DVT ppx: recommend to start LMWH
Code status: DNR/DNI
Pulmonary service will continue to follow along. Outpatient follow-up appointment has already been scheduled with Dr. Reeder for 11/11/2024 at 9:30 AM.
May need to move this appointment up depending how her hospital course ensues.
Will update daughter via TT (updated yesterday)
We will follow
Diagnostic Data:
CXR 10/11/24- Small amount of contrast material noted in the distal esophagus. Mild bibasilar subsegmental atelectasis. No focal consolidation. No pleural effusion or pneumothorax. The cardiomediastinal silhouette is stable. Chronic degenerative
changes of the bilateral shoulders and spine.
CXR 10/08/2024: Findings suspicious for subtle bibasilar pneumonia.
CXR 01/05/14- No parenchymal opacification or vascular congestion is seen. The heart is mildly enlarged. There are atherosclerotic changes of the thoracic aorta. There are degenerative changes of the thoracic spine. There is no pneumothorax or
pleural effusion. No hilar or mediastinal lymphadenopathy is appreciated. The included osseous structures appear intact.
ECHO 05/13/24- Normal left ventricular size, wall thickness and systolic function. LV ejection fraction is 55-60% by Victoria's method of discs. Normal diastolic function. Small jennifer-membranous VSD is noted (View 37 and 72). Normal right
ventricular size and function. Mild aortic regurgitation. Mild tricuspid regurgitation. Estimated pulmonary artery pressure of 27 mmHg. Assuming a right atrial pressure of 3 mmHg. Compared to prior from July 15, 2019, known small perimembranous
VSD seen, otherwise no significant change.
-----
Total time spent today was 41 minutes for this encounter. Time includes reviewing laboratory test/imaging results, reviewing pertinent medical records, obtaining and reviewing medical history, performing an appropriate exam, ordering medications,
tests and procedures. Time also includes documentation of this encounter, coordinating patient care and communicating with other healthcare professionals. Total time does not include separately billed tests performed on this date of service.
Subjective Data
-
Date of Service:
Date of Service: October 13, 2024
Chief Complaint: Pulmonary Follow Up
Subjective:
No new complaints
Objective Data
Data Reviewed
Vital Signs / I&O / Oxygen:
Vital Signs
Temp Pulse Resp BP Pulse Ox
98.3 F 79 16 147/77 96
10/13/24 07:43 10/13/24 07:43 10/13/24 07:43 10/13/24 07:43 10/13/24 07:43
Intake and Output
10/12/24 10/13/24 10/14/24
06:59 06:59 06:59
Intake Total 2280 / 2280 900 / 900
Balance 2280 / 2280 900 / 900
SaO2 96
Nasal Cannula flow liters per 1
minute
Physical Exam
General: Respiratory Distress (negative), Comfortable, Chills (negative), Sweats (negative), Poor Appetite and Other (thin appearing)
HEENT: Normocephalic, Anicteric and Thrush
Cardiovascular: S1-S2, Regular Rhythm, Rub (negative) and Peripheral Edema (negative)
Respiratory: Clear, Non-Labored Respirations and Stridor (negative)
GI: Soft, Non Distended, Non Tender and Normal Bowel Sounds
Neurology: AO x 3, No Motor Deficits and Tremors (negative)
Skin: Warm, Dry, Cyanosis (negative) and Jaundice (negative)
Labs/Micro/Reports
Lab Data
10/13/24 08:02
Microbiology
10/08/24 18:05 Blood/Venous Blood Culture - Preliminary
No Growth in 4 days- Final report to follow
10/08/24 16:49 Blood/Venous Blood Culture - Preliminary
No Growth in 4 days- Final report to follow
[2024-10-13 09:11] LABS: Blood Urea Nitrogen 8 mg/dl (7-17); Calcium 7.9 mg/dl (8.4-10.2); Carbon Dioxide 21 mmol/L (22-30); Chloride 112 mmol/L (98-107); Estimated Creatinine Clearance 44 ml/min; Glucose 94 mg/dl (70-99); Magnesium 2.2 mg/dl (1.6-2.3); Potassium 3.3 mmol/L (3.5-5.1); Sodium 143 mmol/L (135-145); eGFR > 60.00
--- NOTE | 2024-10-13 12:45 | W.IMMPOSTOP ---
Surgical Immed Post Op Note
-
Primary Surgeon: Shakira
Assisting Surgeon: Semaj
Pre-op Diagnosis: Dysphagia, malnutrition
Post-op Diagnosis: Dysphagia, malnutrition
Procedure Performed: Percutaneous endoscopic gastrostomy (PEG) tube placement, EGD
Anesthesia Type: MAC/local
Specimen / Cultures: None
Estimated Blood Loss: 1 cc
Complications: None
Operative Findings:
1. Prior Zenker's repair, esophagus otherwise normal, fundic gland polyps
2. 20 Fr PEG inserted with standard pull technique under direct endoscopic evaluation along greater curve (1:1 palpation, transillumination, bubble test)
3. Secured at 2 cm at the skin
[2024-10-13] MEDS: MYCOSTATIN ORAL SUSPENSION 5 ML PO ×3 (13:43→22:31)
--- NOTE | 2024-10-13 13:52 | W.PN.HOSP.TC ---
Addendum entered and electronically signed by Maureen Kumar MD 10/13/24 17:33:
I saw and evaluated the patient independently. I reviewed the resident�s note and agree with findings and plan as documented by Dr. Olmedo.
GENERAL: well developed female in no apparent distress
HEENT: NC/AT
HEART: regular rate and rhythm, +S1, +S2
LUNGS : decreased BS at bases
ABDOM: soft, nontender, nondistended, + bowel sounds--PEG tube in place
EXT: no cyanosis, clubbing, or edema
NEUROLOGIC: grossly intact
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
-stopping IV Unasyn--failed VSE--cont IVF with dextrose for now---Dr. Olmedo received call back from Dr. Ledesma who agrees with PEG tube as effects of Botox can last weeks--apprec GI--s/p PEG 10/13/24--can use for meds tonight--tube feeds tomorrow
anemia--likely of chronic disease plus IVF dilution--follow for now
likely at least moderate protein calorie malnutrition even with low normal BMI--daughter states she has been losing weight due to poor oral intake
hypokalemia--replete
Suspected Oral Thrush-- finish Nystatin-- Hold on steroid nebs for now.
Rheumatoid Arthritis--Stable. Continue Plaquenil.
DVT Proph-- SCDs
Code Status: DNR
Original Note:
Today's Communication/Plan
-
S/p PEG tube placement. Begin tube feedings from tomorrow per GI
Tylenol rectally as needed
PT in a.m.
Change all oral meds to tube
Assessment / Plan
Assessment / Plan
Impression
Acute hypoxic respiratory failure
Hypokalemia
Suspect oral thrush
Rheumatoid arthritis
Plan
Acute hypoxic respiratory failure-- resolved
Likely due to chronic dysphagia with acute on chronic aspiration pneumonitis exacerbated by Botox / with chronic bronchitis
Stop antibiotics will check chest x-ray in a.m.
Continue nebs
Appreciate speech eval--- strictly NPO, inability to initiate pharyngeal swallow at all with trials of thin liquids.
Discussed with family and patient, they agreed agreeable on PEG tube
S/p PEG tube placement. Begin tube feedings from tomorrow per GI
Tylenol rectally as needed
PT in a.m.
Change all oral meds to tube feeds
hypokalemia--replete
Suspected Oral Thrush - Nystatin for now-- Hold on steroid nebs for now.
Rheumatoid Arthritis- Stable. Continue Plaquenil.
DVT Proph-- SCDs
Code Status: DNR
Anticipated Discharge: > 48 hours
Subjective/Interval History
-
Date of Service: October 13, 2024
No overnight events
Objective Data
-
Labs:
Laboratory Results
10/13/24
08:02
WBC 9.1
Hgb 9.0 L
Hct 27.4 L
Plt Count 275
Sodium 143
Potassium 3.3 L
Chloride 112 H
Carbon Dioxide 21 L
BUN 8
Creatinine 0.7
Glucose 94
Calcium 7.9 L
Vital Signs:
Vital Signs
Temp Pulse Resp BP Pulse Ox
98.9 F 79 20 142/72 96
10/13/24 12:54 10/13/24 13:45 10/13/24 13:45 10/13/24 13:00 10/13/24 13:45
I&O
10/12/24 10/13/24 10/14/24
06:59 06:59 06:59
Intake Total 2280 / 2280 900 / 900
Balance 2280 / 2280 900 / 900
Review of Systems
-
All other systems: Reviewed and negative
Physical Exam
-
General: No Apparent Distress and Comfortable
HEENT: Normocephalic and Atraumatic
Respiratory: Clear to Auscultation
Cardiac: Regular Rhythm and S1/S2
GI: Peg Tube
Musculoskeletal: No Edema
Neuro: AO x 3
Psych: Calm
Data Reviewed
-
Labs: Labs Reviewed by me and Discussed with Physician
--- NOTE | 2024-10-13 14:00 | PTCARENOTE ---
Received patient from PACU s/p PEG tube placement. VSS, patient c/o mild tenderness at insertion site, medicated with PRN rectal tylenol - see AUG. Per MD, okay to use PEG tube for meds starting tonight, tube feeds ordered for tomorrow AM. K rider
infusing with IVF for K of 3.3 on AM labs, repeat labs ordered for tonight per resident. Patient ambulatory in room with stand by assist, family at bedside updated on plan of care.
--- NOTE | 2024-10-13 15:18 | CM ---
Patient seen at bedside, referrals sent to SNF, await therapy assessment. Patient daughter open to him coming to her home if patient does not qualify for SNF. CM will continue to follow for discharge planning needs.
Plan; SNF vs home to daughter's home with VN
[2024-10-13] MEDS: KCL 270 MEQ IV (15:23)
[2024-10-13] MEDS: TYLENOL/FEVERALL 650 MG RECTAL (15:38)
[2024-10-13] MEDS: ROBITUSSIN 200 MG TUBE ×2 (17:49→22:31)
[2024-10-13 22:46] LABS: Blood Urea Nitrogen 8 mg/dl (7-17); Carbon Dioxide 23 mmol/L (22-30); Chloride 112 mmol/L (98-107); Estimated Creatinine Clearance 51 ml/min; Glucose 96 mg/dl (70-99); Magnesium 2.1 mg/dl (1.6-2.3); Phosphorus 1.4 mg/dl (2.5-4.5); Potassium 3.5 mmol/L (3.5-5.1); Sodium 140 mmol/L (135-145); eGFR > 60.00
[2024-10-14] MEDS: D5/0.9% SODIUM CHLORIDE 1000 IV (03:38)
[2024-10-14] MEDS: D5/0.45%NACL IV (03:48)
[2024-10-14 06:12] LABS: % Basophils 0.4 % (0-2); % Eosinophils 4.6 % (0-6); % Immature Granulocytes 1.1 % (0-0.5); % Lymphocytes 14.8 % (20.5-51.1); % Neutrophils 71.1 % (42.2-75.2); Absolute Eosinophils 0.3 10^3/uL (0-0.7); Absolute Immature Granulocytes 0.1 10^3/uL (0-0.05); Absolute Lymphocytes 1.1 10^3/uL (1.2-3.4); Absolute Monocytes 0.6 10^3/uL (0.1-0.6); Absolute Neutrophils 5.1 10^3/uL (1.4-6.5); Hematocrit 26.5 % (37.0-47.0); Hemoglobin 8.8 g/dL (12.0-16.0); Mean Corp Hgb Conc. 33.2 g/dL (33.0-37.0); Mean Corpuscular Hgb 30.6 pg (27.0-31.0); Nucleated Red Blood Cells % 0 %; Platelet Count 259 10^3/uL (130-400); Red Blood Cell Count 2.88 10^6/uL (4.20-5.40); Red Cell Dist. Width 13.2 % (11.5-14.5); White Blood Cell Count 7.1 10^3/uL (4.8-10.8)
[2024-10-14 06:41] LABS: Blood Urea Nitrogen 7 mg/dl (7-17); Calcium 7.4 mg/dl (8.4-10.2); Carbon Dioxide 24 mmol/L (22-30); Chloride 111 mmol/L (98-107); Estimated Creatinine Clearance 51 ml/min; Glucose 95 mg/dl (70-99); Potassium 3.3 mmol/L (3.5-5.1); Sodium 140 mmol/L (135-145); eGFR > 60.00
[2024-10-14 07:45] VITALS: BP 124/65
[2024-10-14] MEDS: KCL ELIXIR 20 MEQ TUBE (08:03)
[2024-10-14] MEDS: NSS (PRESERVATIVE FREE) 10 ML IV (08:03)
[2024-10-14] MEDS: ROBITUSSIN 200 MG TUBE ×4 (08:03→22:22)
[2024-10-14] MEDS: PROTONIX IV 40 MG IV (08:03)
[2024-10-14] MEDS: PLAQUENIL 400 MG PO (08:03)
[2024-10-14] MEDS: MYCOSTATIN ORAL SUSPENSION 5 ML PO ×4 (08:03→22:22)
[2024-10-14] MEDS: ZOLOFT ORAL CONCENTRATE 75 MG TUBE (08:04)
--- NOTE | 2024-10-14 08:07 | W.PN.GI.CBS2 ---
Addendum entered and electronically signed by Tee Cha DO 10/14/24 13:10:
I saw and examined the patient.
The FRENCH TUTOR's note was reviewed and I agree with the note.
Comment: Tolerated EGD/PEG placement well on 10/14. Agree with repletion of electrolytes as below and ongoing recommendations as outlined by Nutrition. Patient to follow-up with us in 3-4 months for PEG check as an outpatient. Further discharge
recommendations for routine care of PEG will be outlined on discharge instructions. Rest of ongoing supportive care and recommendations as outlined below.
Discussed with primary internal medicine team. GI will sign-off, please call back with any questions or concerns.
Original Note:
Today's Communication / Plan
-
s/p EGD with peg placement and EGD for anemia without significant finding
reviewed dietary note-- need K, mag and Phos stable prior to tube feeds starting, -- K 3.3 with current replacement, mag 2 - stable, phos 1.4 on 10/13 and 1.7 today
reviewed with medical team -- getting K Po now, will give dose neutraphos and recheck level at noon
reviewed with nursing to hold feed for now til electrolytes rechecked
discussed care of tube with patient and family
trend hbg with anemia s/p EGD as noted
case management working on dispo
I updated daughter on plan and EGD
Assessment / Plan
-
Pt is a 88yo with hx temporal craniotomy for arachnoid cyst drainage, [facility] 2021, chronic dysphagia with hx Zenker's diverticulum repair with cricopharyngeal myotomy [address] Brizuela at [facility] and recent botox [address] Sanchze at
[facility], diverticulosis, RBBB, osteoarthritis, RA, DJD bronchiectasis with admission 10/08 with shortness of breath with concern for aspiration pneumonitis and difficulty with swallowing. In review pt follows with dr. Painter from ENT and Dr. Reeder
and recently referred to Dr. Sanchez(ENT) at [facility] and completed botox injection last week with noted tight muscle ? UES. She has had chronic dysphagia and did have some improvement after Zenker's surgery but states progressive difficulty over last
year with about 20 lbs wt loss. She admits to slow eating and use of ensure for supplementation. She also admits to taking food back to apartment with public meals and not eating much with family parties for fear of choking. She has been seen by
speech therapy during admission and completed VSE 10/11 with profound pharyngeal dysphagia with impairment of airway protection and absent pharyngoesophageal segment despite swallowing strategies. She was recommended NPO with consider temp non oral
means of diet. Asked as patient and family agreeable to peg tube. On admission she is also noted with anemia with hbg 12.2 then down to 8.7, hypernatremia, hypokalemia, and mild transaminase elevation. Peg placed 10/13.
10/13/24 EGD - An externally removable PEG placement was successfully completed. - Normal esophagus. - Multiple benign appearing gastric polyps. Endoscopically, appeared suspicious for benign fundic gland polyps and left intact as all were less than
one cm.- Otherwise, normal stomach on direct and retroflexion views. - Normal examined duodenum up to the second portion The examination was otherwise normal. - No specimens collected.
-s/p peg 10/13
-worsening of chronic dysphagia
-electrolyte imbalance
-wt loss
-hypoxemia on admission with concern for aspiration pneumonitis
-anemia
-electrolyte imbalance hyponatremia, hyperkalemia
-s/p ENT eval last week with botox injection
-hx Zenkers with prior repair with cricopharyngeal myomotomy 2019 Dr. Kaylynn lock
-mild transaminase elevation
-possible oral thrush
other med problems:
-diverticulosis
-RBBB
-RA
-DJD
-bronchiectasis
PLAN:
s/p EGD with peg placement and EGD for anemia without significant finding
reviewed dietary note-- need K, mag and Phos stable prior to tube feeds starting, -- K 3.3 with current replacement, mag 2 - stable, phos 1.4 on 10/13 and 1.7 today
reviewed with medical team -- getting K Po now, will give dose neutraphos and recheck level at noon
reviewed with nursing to hold feed for now til electrolytes rechecked
discussed care of tube with patient and family
trend hbg with anemia s/p EGD as noted
case management working on dispo
I updated daughter on plan and EGD
Subjective
Subjective
Date of Service: October 14, 2024
pt feeling well, minimal pain, NPo to start tube feeds
Objective
Data Reviewed
Laboratory Data:
Laboratory Results
10/14/24 05:18
10/14/24 05:17
Laboratory Results
PT 15.4 Sec (11.4-14.6) H 10/08/24 16:49
INR 1.19 10/08/24 16:49
Phosphorus 1.4 mg/dl (2.5-4.5) L 10/13/24 22:26
Magnesium 2.0 mg/dl (1.6-2.3) 10/14/24 05:17
Total Bilirubin 0.7 mg/dl (0.2-1.3) 10/11/24 05:09
AST 87 U/L (14-36) H 10/11/24 05:09
ALT 34 U/L (0-35) 10/11/24 05:09
Alkaline Phosphatase 82 U/L (38-126) 10/11/24 05:09
Vital Signs and I&O:
Vital Signs
Temp Pulse Resp BP Pulse Ox
98.8 F 66 16 135/66 97
10/13/24 23:11 10/13/24 23:11 10/13/24 23:11 10/13/24 23:11 10/14/24 04:48
I&O
10/13/24 10/14/24 10/15/24
06:59 06:59 06:59
Intake Total 900 / 900
Balance 900 / 900
Physical Exam
Physical Exam
HEENT: Anicteric and Moist mucous membranes
Cardiology: Normal Sinus Rhythm
Pulmonary: Clear
GI: Soft, Non Distended and Tender (minimal tenderness around peg )
Extremities: No Edema
Neuro: Non Focal
[2024-10-14 08:09] LABS: Phosphorus 1.7 mg/dl (2.5-4.5)
[2024-10-14] MEDS: VENTOLIN NEBULES 2.5 MG INH ×3 (08:22→20:21)
--- NOTE | 2024-10-14 09:06 | W.PN.PUL3 ---
Today's Communication / Plan
-
s/p PEG, to be initiated on TFs and meds per team
Encouraged ambulation, PT/OT evals
OP arrangements to be completed by our office --reviewed with family
Discharge planning per team, we will sign off at this time
Assessment
-
88-year-old female with a past medical history of bronchiectasis, chronic dysphagia, history of Zenker's diverticulum s/p repair, history of RA and osteoporosis who presents with chills and shortness of breath. She follows with ENT, Dr. Painter, and
was referred for Botox injection which she had this past Friday at a doctor at [facility] (Dr. Sanchez). The patient had a tight muscle in her esophagus and the Botox was given to help with this. She was told after getting the Botox injection that some
patients worsen after about 4-5 days, and that seems to be exactly what happened. The patient also had COVID this past fall and seems to have developed a cough since that time. In the ER here, she was initially afebrile to 98.3 �F, pulse rate 103,
respiratory rate 19, BP 130/61 and saturating 87% on room air. Saturations improved to 93% on 2 L/min nasal cannula. Labs showed leukocytosis to 16, Hb 12.2, glucose 179, TSH 1.97, and COVID-19 antigen negative. Blood cultures were collected, and
flu swab was negative. CXR obtained showing subtle patchy interstitial and alveolar opacities in the bases suspicious for a mild bibasilar pneumonia. She was given 500 cc bolus of NS 0.9%, Zosyn and admitted to the IMU for further management.
Pulmonary service consulted for additional recommendations.
Aspiration pneumonitis
Acute respiratory failure with hypoxia, resolved
Acute anemia
Transaminitis
Dysphagia s/p PEG
Chronic conditions MEDICINE AIDE:
Chronic dysphagia with a history of Zenker's diverticulum s/p repair and recent Botox injection to the esophagus due to a 'tight muscle' (?UES)
Bronchiectasis in the lower lobes + RML/lingula with areas of known mucous plugging + opacification in the RML/lingula seen on recent CT chest on 07/28/2024
History of RA
Subarachnoid cyst
Osteoporosis
Major depressive disorder
Hypothyroidism
Ventricular septal defect
RBBB
Dyslipidemia
Plan:
Weaned off O2, stable on RA
No further cough/mucus, on vest/chest PT
Can stop airway clearance, continue nebs
Patient does have a history of mucous plugging with opacification and bronchiectasis in the RML + lingula, and lower lobe bronchiectasis
History of chronic cough, last seen in office by Dr Reeder 08/20[address] chest from 07/28/2024 reviewed--She has bronchial airway thickening and mild bronchiectasis. She has some mild focal bronchiectasis at the right middle lobe
Inhaled budesonide recommended, she had been on intermittent PO prednisone tapers in the past
Obtains routine botox of her esophagus, due to a suspected upper esophageal sphincter that was tight.
Followed by Willow Sanchez at [facility].
[place] to be due to Botox effect wore off w/ return of secretions to be aspirated
Her CXR from 10/08/2024 shows bibasilar opacification possible aspiration vs atelectasis
Continued antibiotics � currently on Unasyn
[employer]LE REPAIRER saw her today and recommend NPO given copious secretions with risk for aspiration; plan for video swallow 10/11--failed
Speech following
s/p PEG 10/13, to be started on TFs
Continue aspiration precautions
Aspiration pneumonitis likely, respiratory complaints have quickly resolved
Maintain SpO2 >90-94% with supplemental O2 and wean down as tolerated
Aspiration precautions; keep HOB >30-45�
Continue with nebulized albuterol QID; change to TID
Stop nebulized 3%/vest therapy/pulmonary toilet
prn nebulized bronchodilators - not currently bronchospastic
Patient currently on nystatin 5 mL PO QID for thrush - would complete 14 day course of this
Incentive spirometer encouraged q1hr while awake
Replete electrolytes with K>4, Mg>2
Trend H/H and transfuse if needed to keep Hb>7g/dL; keep plt>20k, unless there is concern for bleeding then keep plt>50k
Maintain euglycemia with goal BG >100 and <180
DVT ppx: recommend to start LMWH
Code status: DNR/DNI
Outpatient follow-up appointment has already been scheduled with Dr. Reeder for 11/11/2024 at 9:30 AM.
[facility] set up as OP
Discharge planning per team
Diagnostic Data:
CXR 10/11/24- Small amount of contrast material noted in the distal esophagus. Mild bibasilar subsegmental atelectasis. No focal consolidation. No pleural effusion or pneumothorax. The cardiomediastinal silhouette is stable. Chronic degenerative
changes of the bilateral shoulders and spine.
CXR 10/08/2024: Findings suspicious for subtle bibasilar pneumonia.
CXR 01/05/14- No parenchymal opacification or vascular congestion is seen. The heart is mildly enlarged. There are atherosclerotic changes of the thoracic aorta. There are degenerative changes of the thoracic spine. There is no pneumothorax or
pleural effusion. No hilar or mediastinal lymphadenopathy is appreciated. The included osseous structures appear intact.
ECHO 05/13/24- Normal left ventricular size, wall thickness and systolic function. LV ejection fraction is 55-60% by Victoria's method of discs. Normal diastolic function. Small jennifer-membranous VSD is noted (View 37 and 72). Normal right
ventricular size and function. Mild aortic regurgitation. Mild tricuspid regurgitation. Estimated pulmonary artery pressure of 27 mmHg. Assuming a right atrial pressure of 3 mmHg. Compared to prior from July 15, 2019, known small perimembranous
VSD seen, otherwise no significant change.
-----
Total time spent today was 41 minutes for this encounter. Time includes reviewing laboratory test/imaging results, reviewing pertinent medical records, obtaining and reviewing medical history, performing an appropriate exam, ordering medications,
tests and procedures. Time also includes documentation of this encounter, coordinating patient care and communicating with other healthcare professionals. Total time does not include separately billed tests performed on this date of service.
Subjective Data
-
Date of Service:
Date of Service: October 14, 2024
Chief Complaint: Pulmonary Follow Up
Subjective:
No new complaints, stable on RA
Denies pain
Family at bedside
Objective Data
Data Reviewed
Vital Signs / I&O / Oxygen:
Vital Signs
Temp Pulse Resp BP Pulse Ox
98.1 F 64 16 124/65 97
10/14/24 07:45 10/14/24 08:23 10/14/24 08:23 10/14/24 07:45 10/14/24 08:23
Intake and Output
10/13/24 10/14/24 10/15/24
06:59 06:59 06:59
Intake Total 900 / 900
Balance 900 / 900
SaO2 97
Nasal Cannula flow liters per 1
minute
Physical Exam
General: Respiratory Distress (negative), Comfortable, Chills (negative), Sweats (negative), Poor Appetite and Other (thin appearing)
HEENT: Normocephalic, Anicteric and Thrush
Cardiovascular: S1-S2, Regular Rhythm, Rub (negative) and Peripheral Edema (negative)
Respiratory: Clear, Non-Labored Respirations and Stridor (negative)
GI: Soft, Non Distended, Non Tender, Normal Bowel Sounds and Feeding Tube
Neurology: AO x 3, No Motor Deficits and Tremors (negative)
Skin: Warm, Dry, Cyanosis (negative) and Jaundice (negative)
Labs/Micro/Reports
Lab Data
10/14/24 05:18
Microbiology
10/08/24 18:05 Blood/Venous Blood Culture - Final
No Growth - Final Report
04/18/25 16:49 Blood/Venous Blood Culture - Final
No Growth - Final Report
[2024-10-14] MEDS: NEUTRA-PHOS POWDER PACKET 250 MG PO ×4 (09:34→22:22)
--- NOTE | 2024-10-14 11:28 | W.PN.HOSP.TC ---
Addendum entered and electronically signed by Maureen Kumar MD 10/14/24 13:37:
I saw and evaluated the patient independently. I reviewed the resident�s note and agree with findings and plan as documented by Dr. Olmedo.
GENERAL: well developed female in no apparent distress
HEENT: NC/AT
HEART: regular rate and rhythm, +S1, +S2
LUNGS : decreased BS at bases
ABDOM: soft, nontender, nondistended, + bowel sounds--PEG tube in place
EXT: no cyanosis, clubbing, or edema
NEUROLOGIC: grossly intact
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
IV Unasyn--failed VSE--stop IVF---Dr. Olmedo received call back from Dr. Ledesma who agrees with PEG tube as effects of Botox can last weeks--apprec GI--s/p PEG 10/13/24--replete K, phos--start tube feeds and increase to goal
anemia--likely of chronic disease plus IVF dilution--follow for now
likely at least moderate protein calorie malnutrition even with low normal BMI--daughter states she has been losing weight due to poor oral intake
hypokalemia--replete
hypophosphatemia--replete
Suspected Oral Thrush-- finish Nystatin
Rheumatoid Arthritis--Stable. Continue Plaquenil.
DVT Proph-- SCDs
Code Status: DNR
Original Note:
Today's Communication/Plan
-
s/p EGD with peg placement and EGD for anemia without significant finding
Reviewed dietary note, K, mag, Phos to be repleted before starting tube feeds.
Held feeds for now until electrolytes are repleted.
Assessment / Plan
Assessment / Plan
Impression
Acute hypoxic respiratory failure
Hypokalemia
Hypophosphatemia
Suspect oral thrush
Rheumatoid arthritis
Plan
Acute hypoxic respiratory failure-- resolved
Likely due to chronic dysphagia with acute on chronic aspiration pneumonitis exacerbated by Botox injection/ with chronic bronchitis
Stop antibiotics will check chest x-ray in a.m.
Continue nebs
Appreciate speech eval--- strictly NPO, inability to initiate pharyngeal swallow at all with trials of thin liquids.
Discussed with family and patient, they agreed agreeable on PEG tube
s/p EGD with peg placement and EGD for anemia without significant finding
Reviewed dietary note, K, mag, Phos to be repleted before starting tube feeds.
Held feeds for now until electrolytes are repleted.
hypokalemia--replete
Hypophosphatemia
Start Neutra-Phos
Suspected Oral Thrush - Nystatin for now-- Hold on steroid nebs for now.
Rheumatoid Arthritis- Stable. Continue Plaquenil.
DVT Proph-- SCDs
Code Status: DNR
Anticipated Discharge: 24 - 48 hours
Subjective/Interval History
-
Date of Service: October 14, 2024
No overnight event
Objective Data
-
Labs:
Laboratory Results
10/14/24 10/14/24 10/14/24
05:17 05:18 12:00
WBC 7.1
Hgb 8.8 L
Hct 26.5 L
Plt Count 259
Sodium 140
Potassium 3.3 L Pending
Chloride 111 H
Carbon Dioxide 24
BUN 7
Creatinine 0.6
Glucose 95
Calcium 7.4 L
Vital Signs:
Vital Signs
Temp Pulse Resp BP Pulse Ox
98.1 F 64 16 124/65 97
10/14/24 07:45 10/14/24 08:23 04/24/25 08:23 10/14/24 07:45 10/14/24 08:23
I&O
10/13/24 10/14/24 10/15/24
06:59 06:59 06:59
Intake Total 900 / 900
Balance 900 / 900
Review of Systems
-
All other systems: Reviewed and negative
Physical Exam
-
General: No Apparent Distress and Comfortable
HEENT: Normocephalic and Atraumatic
Respiratory: Clear to Auscultation
Cardiac: Regular Rhythm and S1/S2
GI: Peg Tube
Musculoskeletal: No Edema
Neuro: AO x 3
Psych: Calm
Data Reviewed
-
Labs: Labs Reviewed by me and Discussed with Physician
[2024-10-14 11:51] VITALS: BP 124/75; PULSE 71; O2SAT 97
[2024-10-14 12:34] LABS: Phosphorus 1.7 mg/dl (2.5-4.5); Potassium 3.6 mmol/L (3.5-5.1)
[2024-10-14] MEDS: KCL ELIXIR 40 MEQ TUBE (13:36)
--- NOTE | 2024-10-14 13:38 | CM ---
Addendum entered by Mary Villanueva 10/14/24 15:48:
Per Hodan at [facility] has approved and delivery is available on 02-23.
Original Note:
Patient seen at bedside with daughter's present. Patient daughter Mary, address of [address], [place] [address]. Patient for discharge home with [facility] and [facility] for Jevity 1.5 with goal of 45ml/hr. Plan is for patient to go home with
jonny Hernandez at above address. CM will fax to [facility] information regarding Jevity. CM will continue to follow for discharge planning needs.
Plan;home with [facility] and [facility] to provide Jevity product.
--- NOTE | 2024-10-14 14:30 | PTCARENOTE ---
Jevity 1.5 TF started per order after K and phosphorus were administered through peg tube. Will increase q 8 hrs until goal rate if patient tolerating feeds.
--- NOTE | 2024-10-14 14:33 | VNURNOTE ---
Home Health Liaison met with patient and two daughters: Antonina and Mary at bedside to discuss [facility] nurse/therapy, visits, schedule and homebound status. All are agreeable and understand that visits at home will be 2-3 x per week to assess and
teach medical /PEG tube management.
[facility]. [facility] care in 1-2 days after discharge from .
[facility].
--- NOTE | 2024-10-14 14:45 | VNURNOTE ---
Addendum entered by Enriqueta Kang RN 10/15/24 08:54:
Spoke with patient. Reviewed with her that she will need to be upright during and after feedings. Offered to order hospital bed. Patient declined hospital bed.
Original Note:
Home Health Liaison met with patient and two daughters: Antonina and Mary at bedside to discuss [facility] nurse/therapy, visits, schedule and homebound status. All are agreeable and understand that visits at home will be 2-3 x per week to assess and
teach medical /PEG tube management. Patient's goal is to learn PEG care, feedings, meds and return to her apartment in [place]. [facility].
[facility] for [facility] bolus teaching. Hospitalist Dr Bolivar aware patient needs DC before 1200 so [facility] can see patient for same-day home visit. Call placed to Maida at [facility]- she confirmed
Rx, info rec'ed. Per Maida, awaiting approval process, which can take 24-48 hours weekdays. Per Maida, there is no equip delivery on Sundays. Confirmed w/ Maida patient has [employer] connector. [facility], supervisors notified of tentative DC Friday.
[2024-10-14 15:35] VITALS: BP 145/81
[2024-10-14 23:26] VITALS: BP 136/67
[2024-10-15 00:10] LABS: Glucose - Point of Care 98 mg/dl (70-99)
[2024-10-15 05:45] LABS: % Basophils 0.3 % (0-2); % Immature Granulocytes 0.9 % (0-0.5); % Lymphocytes 14.2 % (20.5-51.1); % Monocytes 9.5 % (1.7-9.3); % Neutrophils 70.1 % (42.2-75.2); Absolute Eosinophils 0.3 10^3/uL (0-0.7); Absolute Immature Granulocytes 0.1 10^3/uL (0-0.05); Absolute Monocytes 0.6 10^3/uL (0.1-0.6); Absolute Neutrophils 4.8 10^3/uL (1.4-6.5); Hematocrit 27.9 % (37.0-47.0); Hemoglobin 9.2 g/dL (12.0-16.0); Mean Corpuscular Hgb 30.2 pg (27.0-31.0); Mean Corpuscular Volume 91.5 fL (81.0-99.0); Mean Platelet Volume 9.6 fL (7.4-10.4); Nucleated Red Blood Cells % 0 %; Platelet Count 295 10^3/uL (130-400); Red Blood Cell Count 3.05 10^6/uL (4.20-5.40); Red Cell Dist. Width 13.2 % (11.5-14.5); White Blood Cell Count 6.8 10^3/uL (4.8-10.8)
[2024-10-15 06:06] LABS: Blood Urea Nitrogen 7 mg/dl (7-17); Calcium 7.8 mg/dl (8.4-10.2); Carbon Dioxide 23 mmol/L (22-30); Chloride 108 mmol/L (98-107); Estimated Creatinine Clearance 51 ml/min; Glucose 75 mg/dl (70-99); Magnesium 1.9 mg/dl (1.6-2.3); Phosphorus 2.4 mg/dl (2.5-4.5); Potassium 3.8 mmol/L (3.5-5.1); Sodium 139 mmol/L (135-145); eGFR > 60.00
[2024-10-15 07:17] LABS: Glucose - Point of Care 125 mg/dl (70-99)
[2024-10-15] MEDS: VENTOLIN NEBULES INH (07:19)
[2024-10-15 07:25] VITALS: BP 124/63
[2024-10-15] MEDS: NSS (PRESERVATIVE FREE) 10 ML IV (08:35)
[2024-10-15] MEDS: ZOLOFT ORAL CONCENTRATE 75 MG TUBE (08:36)
[2024-10-15] MEDS: PLAQUENIL 400 MG TUBE (08:36)
[2024-10-15] MEDS: ROBITUSSIN 200 MG TUBE ×4 (08:36→21:23)
[2024-10-15] MEDS: KCL ELIXIR 20 MEQ TUBE (08:36)
[2024-10-15] MEDS: MYCOSTATIN ORAL SUSPENSION 5 ML PO ×4 (08:36→21:23)
[2024-10-15] MEDS: PROTONIX IV 40 MG IV (08:36)
[2024-10-15] MEDS: NEUTRA-PHOS POWDER PACKET 250 MG PO ×3 (08:37→17:01)
[2024-10-15 10:22] VITALS: BMI 21.8
--- NOTE | 2024-10-15 10:30 | PTCARENOTE ---
TF rate increased to goal rate of 45 ml/hr with 25 ml/hr flush per protocol; patient states tolerating TF so far, states feeling hungry, occasionally nauseous but denies need for any nausea medication at this time. +bowel sounds, +BM in bathroom.
Patient ambulatory in room with standby assist, site care provided to PEG tube site, bumper noted at 3.5 cm sahara. Patient educated on how to flush and administer meds through PEG tube, participated in AM medication administration. Patient states no
concerns at this time.
[2024-10-15 11:00] VITALS: BP 112/63; PULSE 75; O2SAT 97
--- NOTE | 2024-10-15 14:12 | W.PN.HOSP.TC ---
Addendum entered and electronically signed by Maureen Kumar MD 10/15/24 14:56:
I saw and evaluated the patient independently. I reviewed the resident�s note and agree with findings and plan as documented by Dr. Olmedo.
GENERAL: well developed female in no apparent distress
HEENT: NC/AT
HEART: regular rate and rhythm, +S1, +S2
LUNGS : decreased BS at bases
ABDOM: soft, nontender, nondistended, + bowel sounds--PEG tube in place
EXT: no cyanosis, clubbing, or edema
NEUROLOGIC: grossly intact
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
-stopping IV Unasyn--failed VSE--stop IVF---Dr. Olmedo received call back from Dr. Ledesma who agrees with PEG tube as effects of Botox can last weeks--apprec GI--s/p PEG 10/13/24--replete K, phos--start tube feeds and increase to goal (45ml/hr x 24
hrs = 1080/6 (QID feeds) = 270mls/feed--ok for d/c tomorrow--tolerating tube feeds
anemia--likely of chronic disease plus IVF dilution--follow for now
likely at least moderate protein calorie malnutrition even with low normal BMI--daughter states she has been losing weight due to poor oral intake--tolerating tube feeds
hypokalemia--replete
hypophosphatemia--replete
Suspected Oral Thrush-- finished Nystatin
Rheumatoid Arthritis--Stable. Continue Plaquenil.
DVT Proph-- SCDs
Code Status: DNR
dispo--home in AM
Original Note:
Today's Communication/Plan
-
On tube feeds, goal is 45 mL/hr = 270ml QID
Plan to discharge home tomorrow at noon
Assessment / Plan
Assessment / Plan
Impression
Acute hypoxic respiratory failure
Hypokalemia
Hypophosphatemia
Suspect oral thrush
Rheumatoid arthritis
Plan
Acute hypoxic respiratory failure-- resolved
Likely due to chronic dysphagia with acute on chronic aspiration pneumonitis exacerbated by Botox injection/ with chronic bronchitis
Stop antibiotics will check chest x-ray in a.m.
Continue nebs
Appreciate speech eval--- strictly NPO, inability to initiate pharyngeal swallow at all with trials of thin liquids.
Discussed with family and patient, they agreed agreeable on PEG tube
s/p EGD with peg placement and EGD for anemia without significant finding
On tube feeds, goal is 45 mL/hr = 270ml QID
Plan to discharge home tomorrow at noon
Replete electrolyte
hypokalemia--replete
Hypophosphatemia
Start Neutra-Phos
Suspected Oral Thrush - Nystatin for now-- Hold on steroid nebs for now.
Rheumatoid Arthritis- Stable. Continue Plaquenil.
DVT Proph-- SCDs
Code Status: DNR
Anticipated Discharge: Within 24 hours
Subjective/Interval History
-
Date of Service: October 15, 2024
On tube feeds
Objective Data
-
Labs:
Laboratory Results
10/15/24
05:19
WBC 6.8
Hgb 9.2 L
Hct 27.9 L
Plt Count 295
Sodium 139
Potassium 3.8
Chloride 108 H
Carbon Dioxide 23
BUN 7
Creatinine 0.6
Glucose 75
Calcium 7.8 L
Vital Signs:
Vital Signs
Temp Pulse Resp BP Pulse Ox
99.2 F 69 16 124/63 94
10/15/24 07:25 10/15/24 07:25 10/15/24 07:25 10/15/24 07:25 10/15/24 10:23
I&O
10/14/24 10/15/24 10/16/24
06:59 06:59 06:59
Intake Total 240 / 240 750 / 750
Balance 240 / 240 750 / 750
Review of Systems
-
All other systems: Reviewed and negative
Physical Exam
-
General: Comfortable
HEENT: Normocephalic and Atraumatic
Respiratory: Clear to Auscultation; Negative Wheezes or Rales
Cardiac: Regular Rhythm and S1/S2
GI: Nondistended
Skin: Warm and Dry
Neuro: AO x 3
Psych: Calm
Data Reviewed
-
Labs: Labs Reviewed by me and Discussed with Physician
[2024-10-15] MEDS: VENTOLIN NEBULES 2.5 MG INH ×2 (14:22→20:12)
--- NOTE | 2024-10-15 15:31 | CM ---
Patient for discharge home tomorrow am prior to noon. Patient to be followed by [facility] and tube feeding supplies provided by [facility] to be delivered to home. Patient daughters both aware. Patient family to transport home. Patient completed IMM and
signed form placed on chart. Patient eager to go home. CM will continue to follow for discharge planning needs.
Plan; home with [facility]; and [facility] tube feeding supplies.
[2024-10-15 15:35] VITALS: BP 119/61
[2024-10-15] MEDS: NEUTRA-PHOS POWDER PACKET 250 MG TUBE (21:23)
[2024-10-15 23:18] VITALS: BP 104/54
[2024-10-16 06:00] VITALS: BMI 22.1
[2024-10-16 06:54] LABS: Hematocrit 27.6 % (37.0-47.0); Hemoglobin 9.4 g/dL (12.0-16.0); Mean Corp Hgb Conc. 34.1 g/dL (33.0-37.0); Mean Corpuscular Hgb 30.7 pg (27.0-31.0); Mean Corpuscular Volume 90.2 fL (81.0-99.0); Platelet Count 293 10^3/uL (130-400); Red Blood Cell Count 3.06 10^6/uL (4.20-5.40); Red Cell Dist. Width 13.2 % (11.5-14.5); White Blood Cell Count 5.8 10^3/uL (4.8-10.8)
[2024-10-16 07:06] LABS: Blood Urea Nitrogen 11 mg/dl (7-17); Calcium 8.4 mg/dl (8.4-10.2); Carbon Dioxide 26 mmol/L (22-30); Chloride 107 mmol/L (98-107); Estimated Creatinine Clearance 44 ml/min; Glucose 107 mg/dl (70-99); Sodium 137 mmol/L (135-145); eGFR > 60.00
[2024-10-16] MEDS: SODIUM CHLORIDE 3% FOR INHALATION 1 VIAL INH (07:32)
[2024-10-16] MEDS: VENTOLIN NEBULES 2.5 MG INH (07:32)
[2024-10-16 07:55] VITALS: BP 131/68
[2024-10-16] MEDS: NEUTRA-PHOS POWDER PACKET 250 MG TUBE (08:11)
[2024-10-16] MEDS: ZOLOFT ORAL CONCENTRATE 75 MG TUBE (08:11)
[2024-10-16] MEDS: PLAQUENIL 400 MG TUBE (08:11)
[2024-10-16] MEDS: MYCOSTATIN ORAL SUSPENSION 5 ML PO (08:11)
[2024-10-16] MEDS: KCL ELIXIR 20 MEQ TUBE (08:11)
[2024-10-16] MEDS: NSS (PRESERVATIVE FREE) 10 ML IV (08:11)
[2024-10-16] MEDS: ROBITUSSIN 200 MG TUBE (08:11)
[2024-10-16] MEDS: PROTONIX IV 40 MG IV (08:11)
--- NOTE | 2024-10-16 10:25 | CM ---
Pt for discharge today
Chart reviewed
Spoke with Devi at [facility] - delivery confirmed for 1:30 PM today
Met with pt and daughters at bedside
Will transport pt home
[facility] to follow at d/c - to see pt today
Plan - home with [facility] and [facility] Fax - [phone]
--- NOTE | 2024-10-16 15:02 | W.PN.HOSP.TC ---
Addendum entered and electronically signed by Maureen Kumar MD 10/16/24 15:12:
I saw and evaluated the patient independently. I reviewed the resident�s note and agree with findings and plan as documented by Dr. Olmedo.
GENERAL: well developed female in no apparent distress
HEENT: NC/AT
HEART: regular rate and rhythm, +S1, +S2
LUNGS : decreased BS at bases
ABDOM: soft, nontender, nondistended, + bowel sounds--PEG tube in place
EXT: no cyanosis, clubbing, or edema
NEUROLOGIC: grossly intact
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
-stopping IV Unasyn--failed VSE--stop IVF---Dr. Olmedo received call back from Dr. Ledesma who agrees with PEG tube as effects of Botox can last weeks--apprec GI--s/p PEG 10/13/24--replete K, phos--start tube feeds and increase to goal (45ml/hr x 24
hrs = 1080/6 (QID feeds) = 270mls/feed--ok for d/c--tolerating tube feeds
anemia--likely of chronic disease plus IVF dilution--follow for now
likely at least moderate protein calorie malnutrition even with low normal BMI--daughter states she has been losing weight due to poor oral intake--tolerating tube feeds
hypokalemia--replete
hypophosphatemia--replete
Suspected Oral Thrush-- finished Nystatin
Rheumatoid Arthritis--Stable. Continue Plaquenil.
DVT Proph-- SCDs
Code Status: DNR
dispo--home
Original Note:
Today's Communication/Plan
-
Tolerating tube feeds, at goal -- 45 mL/hr = 270ml QID
Discharge plan today
Transition home oral medications to tube feed
Wound care instructions
Please follow-up with your ENT specialist after discharge
Please follow-up with GI in 3-4
Assessment / Plan
Assessment / Plan
Impression
Acute hypoxic respiratory failure
Hypokalemia
Hypophosphatemia
Suspect oral thrush
Rheumatoid arthritis
Plan
Acute hypoxic respiratory failure-- resolved
Likely due to chronic dysphagia with acute on chronic aspiration pneumonitis exacerbated by Botox injection/ with chronic bronchitis
Stop antibiotics will check chest x-ray in a.m.
Continue nebs
Appreciate speech eval--- strictly NPO, inability to initiate pharyngeal swallow at all with trials of thin liquids.
Discussed with family and patient, they agreed agreeable on PEG tube
s/p EGD with peg placement and EGD for anemia without significant finding
Tolerating tube feeds, at goal -- 45 mL/hr = 270ml QID
Discharge plan today
Transition home oral medication to tube feed
hypokalemia--replete
Hypophosphatemia
Start Neutra-Phos
Suspected Oral Thrush - Nystatin for now-- Hold on steroid nebs for now.
Rheumatoid Arthritis- Stable. Continue Plaquenil.
DVT Proph-- SCDs
Code Status: DNR
Anticipated Discharge: Today
Subjective/Interval History
-
Date of Service: October 16, 2024
Tolerating tube feeds
Objective Data
-
Labs:
Laboratory Results
10/16/24
06:28
WBC 5.8
Hgb 9.4 L
Hct 27.6 L
Plt Count 293
Sodium 137
Potassium 4.0
Chloride 107
Carbon Dioxide 26
BUN 11
Creatinine 0.7
Glucose 107 H
Calcium 8.4
Vital Signs:
Vital Signs
Temp Pulse Resp BP Pulse Ox
97.8 F 78 18 131/68 94
10/16/24 07:55 10/16/24 07:55 10/16/24 07:55 10/16/24 07:55 10/16/24 07:55
I&O
10/15/24 10/16/24 10/17/24
06:59 06:59 06:59
Intake Total 240 / 240 2430 / 2430
Balance 240 / 240 2430 / 2430
Review of Systems
-
All other systems: Reviewed and negative
Physical Exam
-
General: No Apparent Distress and Comfortable
HEENT: Normocephalic and Atraumatic
Respiratory: Clear to Auscultation
Cardiac: Regular Rhythm and S1/S2
GI: Soft, Nontender, Nondistended and Peg Tube
Musculoskeletal: No Edema
Neuro: AO x 3
Psych: Calm
Data Reviewed
-
Labs: Labs Reviewed by me and Discussed with Physician
--- NOTE | 2024-10-16 16:01 | W.DCSUMMARY ---
Addendum entered and electronically signed by Maureen Kumar MD 10/16/24 17:14:
Read, reviewed, and agree. See same day progress note for additional details. Time spent coordinating care, DC planning, review of DC plan of care with resident, transition of care, review of records in EMR, med rec, consults, notes, d/w
consultants, nursing, family, and CM = 35 minutes
Original Note:
Discharge Summary
Discharge Data
Date of Admission: 10/08/24
Date of Discharge: 10/16/24
-
Pending Results: No
Hospital Course
Discharging Physician : Dr Casper Olmedo, Dr. Maureen Kumar
Disposition : Home
Primary care physician : Shon Phan
Principal Discharge diagnosis :
Acute hypoxic respiratory failure likely due to chronic dysphagia with acute on chronic aspiration pneumonitis
Hypokalemia
Hypophosphatemia
Suspect oral thrush
Chronic Discharge diagnosis :
Chronic dysphagia
Chronic bronchiectasis
Rheumatoid arthritis
Hospital Course : 88-year-old female presented with acute hypoxic respiratory failure due to chronic dysphagia with acute on chronic aspiration pneumonitis exacerbated by Botox injection with chronic bronchiectasis. Chest x-ray was unrevealing.
Patient failed VSE, ans was on strict NPO. Family decided on PEG tube, GI was consulted. We also reached out to ENT specialist Dr. Willow Sanchez and she agreed on the same. Patient was placed on PEG tube on 10/13/2024. Electrolytes were
repleted and she was started on tube feeds. Patient continued to tolerate the feeds, at goal now. At the day of discharge, vitals are stable, oral medications transitioned to tube feeds. Advised to follow-up with GI and ENT outpatient.
Important imaging findings :
Chest x-ray 10/13/2024
There is increased bibasilar opacities, more pronounced on the left with a likely small left pleural effusion. Findings are suspicious for worsening pneumonia/pneumonitis with a small left parapneumonic effusion.
Procedure findings :
Successful PEG tube placement on 10/13/2024
Discharge Plan
-
Patient Disposition: Home (Routine Discharge)
Discharge Diagnosis/Procedures: Acute hypoxic respiratory failure likely due to chronic dysphagia with acute on chronic aspiration pneumonitis
Hypokalemia
Hypophosphatemia
Suspect oral thrush
Rheumatoid arthritis
Condition: Good
Additional Diets: Tube feeds through Peg tube
Activity: No restrictions
Driving Restrictions: As prior to admission
Bathing Restrictions: None
Wound Care: keep peg tube clean and dry. Clean around tube daily with warm water. Ok to use 1 split gauze as needed around tube. Small amount of drainage around tube is normal but call if any increased amounts. Turn tube daily. Call GI for any
redness, swelling or pain at site.
Call for any increased nausea, vomiting or tube feed intolerance. Monitor weights with new tube feeds. IF tube falls out go to ER As soon possible for replacement.
Referrals:
Rigoberto Reeder MD [Active] - 11/11/24 9:30 am (Needs FU appt with [facility] [employer] within 2 weeks, keep Lilli appt on 11/11)
Shon Phan MD [Family Provider] - in less than 1 week
Tee Cha DO [Active] - (F/u in 3-4 months. Call if any issues with peg or problems.)
Additional Discharge Medication Instructions:
Please follow the instruction for wound care to keep the PEG tube clean and dry.
The home medications are transition to tube feeds
Please follow-up with outpatient GI in 3 to 4 months
Please follow-up with your PCP in less than a week
Continue to use your home inhalers inhalers and follow-up with pulmonology on 11/11/2024.
Prescriptions:
New
hydroxychloroquine 200 mg Tablet
400 mg feeding tube DAILY Qty: 30 0RF
sertraline 20 mg/mL Concentrate
75 mg feeding tube DAILY Qty: 60 0RF
pantoprazole [address] for susp in packet
40 mg PO DAILY Qty: 30 0RF
promethazine 6.25 mg/5 mL syrup
6.25 mg feeding tube Q6H PRN (Reason: nausea and vomiting) Qty: 120 0RF
Continued
budesonide 0.5 mg/2 mL Suspension For Nebulization
0.5 mg INHALATION R BID
ipratropium bromide 0.02 % Solution
2.5 ml INHALATION R BID
Prolia 60 mg/mL Syringe
60 mg SC [id number]
Discontinued
cholecalciferol (vitamin D3) 1,000 UNIT capsule
1,000 unit PO DAILY
Theragen Tablet
1 tab PO DAILY
calcium carbonate [Calcium 500] 500 mg calcium (1,250 mg) Tablet
500 mg PO DAILY
ascorbic acid (vitamin C) [Vitamin C] 500 mg Tablet
500 mg PO DAILY
pantoprazole 40 mg Tablet,Delayed Release (Dr/Ec)
40 mg PO DAILY
naproxen sodium [Aleve] 220 mg Tablet
220 mg PO BIDPRN PRN (Reason: mild pain)
hydroxychloroquine 200 mg Tablet
400 mg PO DAILY
sertraline 50 mg Tablet
75 mg PO DAILY
Discharge Orders:
Discharge Patient (As Directed); Ordered 10/16/24
Ordered By: Casper Olmedo
Discharge Date and Time
Discharge Date/Time: 10/16/24 10:59
Print Language: PERSIAN
== END 2024-10-16 10:59 | disposition home health service (06) | DRG 177 ==
LOC: 2 NORTH 20:55
PROVIDERS: Emergency Medicine; Nurse Practitioner Adult Health; Physician Assistant; Student in an Organized Health Care Education/Training Program; Surgery; ADMITTING PHYSICIAN Hospitalist; ATTENDING PHYSICIAN Internal Medicine; CONSULT PHYSICIAN Internal Medicine Critical Care Medicine; CONSULT PHYSICIAN Student in an Organized Health Care Education/Training Program; EMERGENCY PHYSICIAN Emergency Medicine; FAMILY PHYSICIAN Internal Medicine
PROC: 0DH63UZ Insertion of Feeding Device into Stomach, Percutaneous Approach (ICD-10-PCS; 2024-10-13)
DX: J69.0 Pneumonitis due to inhalation of food and vomit (principal); J96.01 Acute respiratory failure with hypoxia; E44.0 Moderate protein-calorie malnutrition; J47.0 Bronchiectasis with acute lower respiratory infection; B37.0 Candidal stomatitis; Z66 Do not resuscitate; E87.0 Hyperosmolality and hypernatremia; K22.5 Diverticulum of esophagus, acquired; M06.9 Rheumatoid arthritis, unspecified; R13.13 Dysphagia, pharyngeal phase; T48.295A Adverse effect of other drugs acting on muscles, initial encounter; M81.0 Age-related osteoporosis without current pathological fracture; D63.8 Anemia in other chronic diseases classified elsewhere; E87.6 Hypokalemia; E83.39 Other disorders of phosphorus metabolism; G93.0 Cerebral cysts; I45.10 Unspecified right bundle-branch block; R74.01 Elevation of levels of liver transaminase levels; K31.7 Polyp of stomach and duodenum; Z79.51 Long term (current) use of inhaled steroids; Z86.16 Personal history of COVID-19; Z96.643 Presence of artificial hip joint, bilateral; Z79.899 Other long term (current) drug therapy; Z68.22 Body mass index [BMI] 22.0-22.9, adult; Z11.52 Encounter for screening for COVID-19
CPT/HCPCS: 71046; 74230; 80048; 80053; 82784; 82787; 82962; 83605; 83735; 84100; 84132; 84443; 85025; 85027; 85610; 87040; 87502; 87811; 92526; 92610; 92611; 93005; 94640; 94669; 96361; 96365; 96367; 97116; 97162; 97530; 99285

== ENCOUNTER → 2024-12-22 09:47 | Outpatient (REF) | payer MEDICARE, OTHER, SELFPAY | LOC: RST 09:47 | PROVIDERS: ATTENDING PHYSICIAN Otolaryngology; FAMILY PHYSICIAN Internal Medicine | DX: R13.10 Dysphagia, unspecified (principal) | CPT/HCPCS: 74230; 92611 ==

== ENCOUNTER → 2025-04-19 09:34 | Outpatient (REF) | payer MEDICARE, OTHER, SELFPAY | LOC: RST 09:34 | PROVIDERS: ATTENDING PHYSICIAN Otolaryngology; FAMILY PHYSICIAN Internal Medicine; REFERRING PHYSICIAN Student in an Organized Health Care Education/Training Program | DX: R13.10 Dysphagia, unspecified (principal); T17.908S Unspecified foreign body in respiratory tract, part unspecified causing other injury, sequela | CPT/HCPCS: 74230; 92611 ==

== ENCOUNTER → 2025-05-23 09:46 | Outpatient (REF) | payer MEDICARE, OTHER, SELFPAY | LOC: HWRAD 09:46 | PROVIDERS: ATTENDING PHYSICIAN Otolaryngology; FAMILY PHYSICIAN Internal Medicine | DX: E04.1 Nontoxic single thyroid nodule (principal) | CPT/HCPCS: 76536 ==

== ENCOUNTER → 2025-05-30 10:27 | Outpatient (REF) | payer MEDICARE, OTHER, SELFPAY | LOC: RAD 10:27 | PROVIDERS: ATTENDING PHYSICIAN Internal Medicine Critical Care Medicine | DX: J47.9 Bronchiectasis, uncomplicated (principal) | CPT/HCPCS: 71046 ==